=== PATIENT | female | born 1945 | race Caucasian/White ===

== ENCOUNTER 2016-11-02 17:16 | Inpatient (IN) ==
[2016-11-02] MEDS ORDERED: Ondansetron 4 MG/2 ML VIAL IVP ONE (17:30)
--- NOTE | 2016-11-02 17:31 | Emergency Department Note ---
Disposition Clinical Impression: GI bleed Qualifiers: GI bleed type/associated pathology: unspecified gastrointestinal hemorrhage type Qualified Code(s): K92.2 - Gastrointestinal hemorrhage, unspecified Disposition: Still a Patient Condition: Fair Referrals: Lucia Leone DO [Primary Care Provider] - Forms: ED Satisfaction Letter GI Bleed HPI - General Chief complaint: ED GI Bleed Stated complaint: GI Bleed Time Seen by Provider: 11/02/16 17:21 Source: patient, EMS Mode of arrival: EMS Limitations: no limitations Nursing Notes Reviewed: Yes Vital Signs Reviewed: Yes - History of Present Illness HPI Narrative: 71-year-old female transfer evaluation of dark tarry stools as well as a couple episodes of coffee-ground emesis. Patient has no history of GI bleed. 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 Patient was recently admitted at [facility] for altered mental status and was discharged earlier today. Going back to the nursing facility the patient was noted to have a couple episodes of dark stools as well as emesis of coffee-ground emesis. Patient denies history of GI bleed in the past. Denies any nausea or vomiting currently. No abdominal pain. No chest pressures breath. Patient denies history of excessive NSAID use or ulcers. Denies history of liver disease. Has had a endoscopy in the past but is not able to recall the results. Also had a colonoscopy in the past but is not able to call the results. Patient is on aspirin daily. No other anticoagulation noted. Pt Subjective Complaint: coffee ground emesis, melena Onset (ago): hour(s) Consistency: constant - Related Data Allergies Allergy/AdvReac Type Severity Reaction Status Date / Time acetaminophen Allergy See Verified 11/02/16 17:30 [From Darvocet-N 100] Comments atropine [From Urised] Allergy See Verified 11/02/16 17:32 Comments Benzoic Acid [From Urised] Allergy See Verified 11/02/16 17:32 Comments Benzoic Acid Allergy See Verified 11/02/16 17:30 Comments butalbital [From Fioricet] Allergy See Verified 11/02/16 17:30 Comments caffeine [From Fioricet] Allergy See Verified 11/02/16 17:30 Comments ciprofloxacin [From Cipro] Allergy See Verified 11/02/16 17:30 Comments Hyoscyamine Allergy See Verified 11/02/16 17:30 Comments methenamine Allergy See Verified 11/02/16 17:30 Comments methylene blue [From Urised] Allergy See Verified 11/02/16 17:32 Comments Penicillins Allergy See Verified 11/02/16 17:30 Comments propoxyphene Allergy See Verified 11/02/16 17:30 [From Darvocet-N 100] Comments salicylates [From Urised] Allergy See Verified 11/02/16 17:32 Comments All systems ED: reviewed and negative except as stated. Constitutional: Reports: as per HPI. Denies: fever Eyes: Reports: as per HPI ENT ED: Reports: as per HPI Cardiovascular: Reports: as per HPI. Denies: chest pain, palpitations Respiratory: Reports: as per HPI. Denies: cough, dyspnea Gastrointestinal: Reports: as per HPI, nausea, vomiting Genitourinary: Reports: as per HPI Musculoskeletal: Reports: as per HPI Integumentary: Reports: as per HPI Neurological: Reports: as per HPI Psychiatric: Reports: as per HPI Past Medical History - Past Medical History Surgical history: Reports: cholecystectomy - Social History Smoking Status: Never smoker Physical Exam - General Limitations: no limitations General appearance: alert, in no apparent distress, obese, other (APPEARS PALE) - Head Head exam: atraumatic, normocephalic, normal inspection - Eye Eye exam: Present: normal appearance, PERRL, EOMI. Absent: scleral icterus - ENT ENT exam: normal exam, mucous membranes moist - Neck Neck exam: Present: normal inspection - Chest Chest inspection: Present: normal inspection, symmetric chest wall rise - Respiratory Respiratory exam: Present: other (Diffusely diminished breath sounds). Absent: respiratory distress - Cardiovascular Cardiovascular exam: Present: regular rate, normal rhythm - Abdominal Exam Abdominal exam: Present: soft, Non-Tender. Absent: distention, guarding, rebound - Rectal Exam Blueprint Engineer present during exam: Yes Rectal exam: Present: normal rectal tone, heme (+) stool - Extremities Exam Extremities exam: Present: normal inspection. Absent: pedal edema - Back Exam Back exam: Present: normal inspection - Neurological Exam Neurological exam: Present: alert, oriented X3 - Skin Skin exam: Present: warm, dry, intact, pallor Course Course Narrative: Patient seen and examined. Patient appears pale. Patient's here for likely GI bleed. Patient's vitals are stable. Patient was noted to have blood pressure in the 90s which responded to small fluid bolus. Patient will get basic lab work, EKG, troponin as well as type and screen labs. Coagulation panel. Disposition likely admission. - Reevaluation(s) Reevaluation #1: Patient is in no acute distress and no reason at this time. The patient will be signed out to the oncoming providers for further evaluation and management. Time: 18:41 Vital Signs Temperature 98.4 F 11/02/16 17:37 Pulse Rate 112 11/02/16 17:37 Respiratory Rate 16 11/02/16 17:37 Blood Pressure 112/80 11/02/16 17:37 O2 Sat by Pulse Oximetry 100 11/02/16 17:37 Temperature 98.4 F 11/02/16 17:37 Pulse Rate 105 11/02/16 17:50 Respiratory Rate 16 11/02/16 17:50 Blood Pressure 107/87 11/02/16 17:50 O2 Sat by Pulse Oximetry 100 11/02/16 17:50 Oxygen Delivery Oxygen Delivery Nasal Cannula GI Bleed - Lab Data Lab Results 11/02/16 Range/Units 17:20 Stool Occult Blood Positive A (Negative) - EKG Data EKG attestation: Yes I reviewed and interpreted this EKG. EKG shows normal: sinus rhythm Rate: tachycardia Rhythm: NSR Sharon/QRS: normal Interpretation: no acute changes, unchanged when compared to prior tracing (date ) (2008) SHailey - Jose Situation: Demographics, MOA Background: Presenting Complaint, Relevant PMH, Meds, & Allergies Assessment: Vital Signs, Course and respsone to treatment, Patient/Family Expectation, Pertinant Lab Results, Outstanding Labs Recommendation: Barrier(s) to disposition, Recommendation based on pending studies, treatments, or consults S.B.AJefferson Report Given to: Dr. Radha Garcia Repor Time: 19:00
--- NOTE | 2016-11-02 17:38 | Emergency Department Note ---
START Narrative - START START: I examined this patient and my medical decision-making was reviewed with the AIRCRAFT PAINTER APPRENTICE/PA/Advanced Practice Nurse/Resident Physician. I agree with the documented findings, disposition and treatment plan as described except to the extent set forth below. ED attending note: Patient seen with emergency medicine resident Dr. Villasenor. Please see a copy of his note for details of the H&P, evaluation, management and disposition of this patient. We independently had [id number] contact with the patient Briefly: ST 11-year-old female by EMS from local longterm facility for vomiting up coffee ground emesis and dark stools. Was admitted at an outside emergency department for altered mental status and kept all weekend. He was discharged just today back to the longterm facility. Apparently this GI bleeding is new for today but she has a history of GERD GI bleeding and Bermudez' s esophagus. Patient is obese awake and alert does not appear to be altered abnormal complexion without pallor. Labs and rectal exam for guaiac testing are pending. Abdominal pelvic CT pending admission anticipated patient stable
[2016-11-02 19:10] LABS: INR 1.4; Prothrombin Time 15.4 Seconds (9.4-12.1)
[2016-11-02] MEDS ORDERED: Pantoprazole 80 MG in 0.9 % Sodium Chloride 50 ML IVPB ONE ×2 (19:10→19:45)
[2016-11-02 20:01] LABS: Basophils % 0.2 %; Eosinophils % 0.2 %; Immature Platelets 4.9 % (1.1-6.1); Lymphocytes # 1.3 K/mcL (0.6-4.6); Lymphocytes % 12.9 %; Mean Corpuscular HGB Conc 30.6 g/dL (31.6-35.5); Mean Corpuscular Hemoglobin 27.5 pg (28.0-33.3); Monocytes % 9.7 %; Neutrophils # 7.4 K/mcL (1.6-8.9); Nucleated Red Blood Cells 0.5 /100 WBC (0); Platelet Count 265 K/mcL (140-400); Red Cell Distribution Width 16.5 % (11.5-14.5)
[2016-11-02 20:08] LABS: Hemoglobin 5.5 g/dL (11.5-15.4)
[2016-11-02] MEDS ORDERED: *HR* FentaNYL (PF) 100 MCG/2 ML VIAL IVP ONE (20:23)
[2016-11-02 20:32] LABS: Anisocytosis 1+ (Not Present); Basophilic Stippling 1+ (Not Present); Hypochromasia Present (Not Present); Platelet Estimate Normal (Normal); Polychromasia 1+ (Not Present); Rouleaux Present (Not Present)
[2016-11-02 20:33] LABS: Large Platelets Present (Not Present)
[2016-11-02 20:36] LABS: Calcium 8.4 mg/dL (8.6-10.8)
[2016-11-02 20:38] LABS: Potassium 5.6 mEq/L (3.5-4.5)
--- NOTE | 2016-11-02 20:46 | Emergency Department Note ---
Disposition Clinical Impression: GI bleed Qualifiers: GI bleed type/associated pathology: unspecified gastrointestinal hemorrhage type Qualified Code(s): K92.2 - Gastrointestinal hemorrhage, unspecified Disposition: Still a Patient Condition: Critical Time of Disposition: 21:46 GI Bleed HPI - General Chief complaint: ED GI Bleed Stated complaint: GI Bleed Time Seen by Provider: 11/02/16 17:21 Source: patient, EMS Mode of arrival: EMS Limitations: no limitations - History of Present Illness Pt Subjective Complaint: coffee ground emesis, melena - Related Data Home Medications Medication Instructions Recorded Confirmed Acetaminophen [Tylenol] 650 mg PO Q6HR PRN 11/02/16 11/02/16 Albuterol Neb [Proventil Neb] 2.5 mg IH QID 11/02/16 11/02/16 Albuterol Sulfate [Albuterol 1 puff IH Q4HR 11/02/16 11/02/16 Inhaler] Aspirin [Lo-Dose Aspirin EC] 81 mg PO DAILY 11/02/16 11/02/16 Benzocaine/Menthol Sunil [Cepacol 1 lozenge MM Q4H PRN 11/02/16 11/02/16 Sore Throat Lozenge] Bisacodyl [Woman's Laxative] 5 mg PO DAILY PRN 11/02/16 11/02/16 Calcium Carbonate/Vitamin D3 1 tab PO BID 11/02/16 11/02/16 [Oyster Shell Calcium-Vit D Tab] Citalopram [CeleXA] 10 mg PO Q48H 11/02/16 11/02/16 Cranberry 500 mg PO BID 11/02/16 11/02/16 Fluticasone/Salmeterol [Advair 1 puff IH BID 11/02/16 11/02/16 250-50 Diskus] Furosemide [Lasix] 20 mg PO DAILY 11/02/16 11/02/16 Gabapentin [Neurontin] 400 mg PO TID 11/02/16 11/02/16 Glimepiride [Amaryl] 4 mg PO DAILY 11/02/16 11/02/16 GuaiFENesin/Dextromethorphan 1 tab PO BID 11/02/16 11/02/16 [Mucinex Dm ER 600-30 mg Tablet] Hydrocortisone Butyrate 1 appl TP BID PRN 11/02/16 11/02/16 Ibuprofen [Motrin] 600 mg PO Q8HR PRN 11/02/16 11/02/16 Ibuprofen [Motrin] 600 mg PO Q8HR PRN 11/02/16 11/02/16 Insulin ASPART [Novolog Flexpen] 2 - 10 unit SQ TIDWM 11/02/16 11/02/16 Loratadine [Allergy Relief] 10 mg PO DAILY 11/02/16 11/02/16 Mag Hydrox/Al Hydrox/Simeth 15 ml PO Q6H PRN 11/02/16 11/02/16 [Maalox] Magnesium Oxide [Mag-Ox] 400 mg PO TID 11/02/16 11/02/16 Menthol [Biofreeze] 1 appl TP BID 11/02/16 11/02/16 Metoclopramide [Reglan] 10 mg PO TID 11/02/16 11/02/16 Metoprolol [Lopressor] 25 mg PO BID 11/02/16 11/02/16 Montelukast [Singulair] 10 mg PO DAILY 11/02/16 11/02/16 Multivitamin with Iron 1 tab PO DAILY 11/02/16 11/02/16 [Multivitamins with Iron] Nitroglycerin [Nitrostat] 0.4 mg SL AD PRN 11/02/16 11/02/16 Oxybutynin Chloride [Ditropan Xl] 10 mg PO DAILY 11/02/16 11/02/16 Oxycodone HCl/Acetaminophen 1 tab PO Q6H PRN 11/02/16 11/02/16 [Percocet 5-325 mg Tablet] Pioglitazone [Actos] 30 mg PO DAILY 11/02/16 11/02/16 SUMAtriptan Succinate [Imitrex] 100 mg PO AD PRN 11/02/16 11/02/16 Simvastatin [Zocor] 20 mg PO HS 11/02/16 11/02/16 Tiotropium [Spiriva] 18 mcg IH DAILY 11/02/16 11/02/16 Allergies Allergy/AdvReac Type Severity Reaction Status Date / Time acetaminophen Allergy See Verified 11/02/16 17:30 [From Darvocet-N 100] Comments atropine [From Urised] Allergy See Verified 11/02/16 17:32 Comments Benzoic Acid [From Urised] Allergy See Verified 11/02/16 17:32 Comments Benzoic Acid Allergy See Verified 11/02/16 17:30 Comments butalbital [From Fioricet] Allergy See Verified 11/02/16 17:30 Comments caffeine [From Fioricet] Allergy See Verified 11/02/16 17:30 Comments ciprofloxacin [From Cipro] Allergy See Verified 11/02/16 17:30 Comments Hyoscyamine Allergy See Verified 11/02/16 17:30 Comments methenamine Allergy See Verified 11/02/16 17:30 Comments methylene blue [From Urised] Allergy See Verified 11/02/16 17:32 Comments Penicillins Allergy See Verified 11/02/16 17:30 Comments propoxyphene Allergy See Verified 11/02/16 17:30 [From Darvocet-N 100] Comments salicylates [From Urised] Allergy See Verified 11/02/16 17:32 Comments Constitutional: Reports: as per HPI. Denies: fever Eyes: Reports: as per HPI ENT ED: Reports: as per HPI Cardiovascular: Reports: as per HPI. Denies: chest pain, palpitations Respiratory: Reports: as per HPI. Denies: cough, dyspnea Gastrointestinal: Reports: as per HPI, nausea, vomiting Genitourinary: Reports: as per HPI Musculoskeletal: Reports: as per HPI Integumentary: Reports: as per HPI Neurological: Reports: as per HPI Psychiatric: Reports: as per HPI Past Medical History - Past Medical History Medical history: Reports: arthritis, COPD, diabetes, GERD, hyperlipidemia, hypertension, migraine, renal disease, other Surgical history: Reports: cholecystectomy Psychiatric history: Reports: anxiety, depression - Social History Smoking Status: Never smoker Smokeless Tobacco Status: No Alcohol use: Reports: none Drug use: Reports: none Physical Exam - General Limitations: no limitations General appearance: alert, in no apparent distress, obese, other (APPEARS PALE) Course - Reevaluation(s) Reevaluation #1: Patient received in signout from Dr. Villasenor. She presents with 1 day of persistent black and maroon-colored stools and one episode of coffee-ground emesis. She is not anticoagulated, but was just discharged from an outside facility 2 days ago for congestive heart failure where she did receive DVT prophylaxis Lovenox. She complains of weakness and mild shortness of breath without chest pain. On my initial evaluation the patient is tachycardic to 120 and only has a 20-gauge in her finger for access. I placed a right IJ central line for better access. Hemoglobin was found to be 5.5. 2 units of blood are ordered. We are awaiting an ICU bed versus transfer if it will not become available shortly at this time. Time: 21:25 Reevaluation #2: Case discussed with hospitalist application engineer Dr. Cox. He is aware of the critical nature of patient's condition and her full CODE STATUS. Dr. Arguelles is application engineer for endoscopy and was also notified of patient. I agree with her that there is no need for emergent endoscopy at this time. Patient will need volume resuscitation and endoscopy likely in the morning. Dr. Arguelles is available if needed through the night. She would like me to add Carafate to that Protonix. This was ordered. Hospitalist was updated on plan. Time: 21:46 Vital Signs Temperature 98.4 F 11/02/16 17:37 Pulse Rate 112 11/02/16 17:37 Respiratory Rate 16 11/02/16 17:37 Blood Pressure 112/80 11/02/16 17:37 O2 Sat by Pulse Oximetry 100 11/02/16 17:37 Temperature 98.4 F 11/03/16 04:50 Pulse Rate 97 11/03/16 06:00 Respiratory Rate 28 11/03/16 06:00 Blood Pressure 124/59 11/03/16 06:00 O2 Sat by Pulse Oximetry 100 11/03/16 06:00 Oxygen Delivery Oxygen Delivery Nasal Cannula Procedures - Central Line Placement Right IJ Central Line Inserted*: Yes Central Line Insertion: emergent Procedural Pause: verify patient name and date of , timeout performed per policy, norma and assess the site, assemble equipment and verify supplies, perform hand hygiene Patient Placed on Monitor/Pulse Ox: Yes During the Procedure: clinician is wearing sterile gloves, cap, mask,& gown during insertion, sterile field and sterile technique are maintained, patient's face is covered with drape or mask and wearing a cap, everyone in room is wearing a mask Central Line Prep: Chlorhexidine scrub Prep the Procedure Site: apply chloraprep to the skin using a back and forth scrubbing motion, apply chloraprep for 30 seconds (upper body), 1-2 min ( femoral sites), allow prep to dry, drape the patient with a full body drape Local Anesthetic: lidocaine 1% Amount of anesthesia used (mL): 5 Ultrasound Used for Placement: Yes Central Line Lumen Inserted: triple Post Procedure: sutured in place, good blood return, all ports aspirated, flushed, capped, sterile dressing applied, guide wire removed and visualized, dressing is dated Post Procedure X-Ray: tip of catheter in good position Patient Tolerated Procedure: well, no complications Complications: none Name of Clinician Inserting Central Line: Radha Date: 11/02/16 Time: 20:50 GI Bleed - Lab Data Result diagrams: 11/03/16 05:00 11/03/16 05:00 Lab Results 11/02/16 11/02/16 11/02/16 Range/Units 17:20 18:49 18:49 WBC (4.3-11.1) K/mcL RBC (3.82-4.97) M/mcL Hgb (11.5-15.4) g/dL Hct (35.3-44.9) % MCV (83.0-100.0) fL MCH (28.0-33.3) pg MCHC (31.6-35.5) g/dL RDW (11.5-14.5) % Plt Count (140-400) K/mcL MPV (9.4-12.4) fL Immature Gran % (0-4) % Seg Neutrophils % % Lymphocytes % % Monocytes % % Eosinophils % % Basophils % % Neutrophils # (1.6-8.9) K/mcL Lymphocytes # (0.6-4.6) K/mcL Monocytes # (0.0-1.3) K/mcL Eosinophils # (0.0-0.6) K/mcL Basophils # (0.0-0.2) K/mcL Nucleated RBCs/100 WBC (0) /100 WBC Platelet Estimate (Normal) Large Platelets (Not Present) Immature Plt Fraction (1.1-6.1) % Polychromasia (Not Present) Hypochromasia (Not Present) Basophilic Stippling (Not Present) Anisocytosis (Not Present) Rouleaux (Not Present) PT 15.4 H (9.4-12.1) Seconds INR 1.4 APTT 25.0 L (26.0-36.0) Seconds Sodium (136-145) mEq/L Potassium (3.5-4.5) mEq/L Chloride (98-109) mEq/L Carbon Dioxide (19-29) mEq/L BUN (7-20) mg/dL Creatinine (0.57-1.11) mg/dL Est GFR ( Amer) (> 60) Est GFR (Non-Af Amer) (> 60) BUN/Creatinine Ratio (6-26) Glucose (70-99) mg/dL Calculated Osmolality (280-300) Lactic Acid 1.3 (0.5-2.2) mmol/L Calcium (8.6-10.8) mg/dL Total Bilirubin (0.2-1.2) mg/dL Direct Bilirubin (0.0-0.5) mg/dL Indirect Bilirubin (0.0-1.2) mg/dL AST (5-34) Units/L ALT (0-55) Units/L Alkaline Phosphatase (38-126) Units/L Troponin I (0-0.03) ng/mL Serum Total Protein (6.0-8.3) g/dL Albumin (3.5-5.0) g/dL Globulin (2.4-3.5) g/dL Albumin/Globulin Ratio (1.1-2.2) Stool Occult Blood Positive A (Negative) Specimen Rejected Blood Type Antibody Screen Antibody Identification Crossmatch 11/02/16 11/02/16 11/02/16 Range/Units 18:49 18:49 18:49 WBC (4.3-11.1) K/mcL RBC (3.82-4.97) M/mcL Hgb (11.5-15.4) g/dL Hct (35.3-44.9) % MCV (83.0-100.0) fL MCH (28.0-33.3) pg MCHC (31.6-35.5) g/dL RDW (11.5-14.5) % Plt Count (140-400) K/mcL MPV (9.4-12.4) fL Immature Gran % (0-4) % Seg Neutrophils % % Lymphocytes % % Monocytes % % Eosinophils % % Basophils % % Neutrophils # (1.6-8.9) K/mcL Lymphocytes # (0.6-4.6) K/mcL Monocytes # (0.0-1.3) K/mcL Eosinophils # (0.0-0.6) K/mcL Basophils # (0.0-0.2) K/mcL Nucleated RBCs/100 WBC (0) /100 WBC Platelet Estimate (Normal) Large Platelets (Not Present) Immature Plt Fraction (1.1-6.1) % Polychromasia (Not Present) Hypochromasia (Not Present) Basophilic Stippling (Not Present) Anisocytosis (Not Present) Rouleaux (Not Present) PT (9.4-12.1) Seconds INR APTT (26.0-36.0) Seconds Sodium (136-145) mEq/L Potassium (3.5-4.5) mEq/L Chloride (98-109) mEq/L Carbon Dioxide (19-29) mEq/L BUN (7-20) mg/dL Creatinine (0.57-1.11) mg/dL Est GFR ( Amer) (> 60) Est GFR (Non-Af Amer) (> 60) BUN/Creatinine Ratio (6-26) Glucose (70-99) mg/dL Calculated Osmolality (280-300) Lactic Acid (0.5-2.2) mmol/L Calcium (8.6-10.8) mg/dL Total Bilirubin 0.1 L (0.2-1.2) mg/dL Direct Bilirubin 0.1 (0.0-0.5) mg/dL Indirect Bilirubin 0.0 (0.0-1.2) mg/dL AST 15 (5-34) Units/L ALT 7 (0-55) Units/L Alkaline Phosphatase 32 L (38-126) Units/L Troponin I 0.01 (0-0.03) ng/mL Serum Total Protein 5.4 L (6.0-8.3) g/dL Albumin 2.3 L (3.5-5.0) g/dL Globulin 3.1 (2.4-3.5) g/dL Albumin/Globulin Ratio 0.7 L (1.1-2.2) Stool Occult Blood (Negative) Specimen Rejected Hemolyzed Blood Type Antibody Screen Antibody Identification Crossmatch 11/02/16 11/02/16 11/02/16 Range/Units 19:52 19:52 20:38 WBC 10.3 (4.3-11.1) K/mcL RBC 2.00 L (3.82-4.97) M/mcL Hgb 5.5 L* (11.5-15.4) g/dL Hct 18.0 L (35.3-44.9) % MCV 90.0 (83.0-100.0) fL MCH 27.5 L (28.0-33.3) pg MCHC 30.6 L (31.6-35.5) g/dL RDW 16.5 H (11.5-14.5) % Plt Count 265 (140-400) K/mcL MPV 11.0 (9.4-12.4) fL Immature Gran % 5.0 H (0-4) % Seg Neutrophils % 72.0 % Lymphocytes % 12.9 % Monocytes % 9.7 % Eosinophils % 0.2 % Basophils % 0.2 % Neutrophils # 7.4 (1.6-8.9) K/mcL Lymphocytes # 1.3 (0.6-4.6) K/mcL Monocytes # 1.0 (0.0-1.3) K/mcL Eosinophils # 0.0 (0.0-0.6) K/mcL Basophils # 0.0 (0.0-0.2) K/mcL Nucleated RBCs/100 WBC 0.5 H (0) /100 WBC Platelet Estimate Normal (Normal) Large Platelets Present A (Not Present) Immature Plt Fraction 4.9 (1.1-6.1) % Polychromasia 1+ A (Not Present) Hypochromasia Present A (Not Present) Basophilic Stippling 1+ A (Not Present) Anisocytosis 1+ A (Not Present) Rouleaux Present A (Not Present) PT (9.4-12.1) Seconds INR APTT (26.0-36.0) Seconds Sodium 140 (136-145) mEq/L Potassium 5.6 H (3.5-4.5) mEq/L Chloride 106 (98-109) mEq/L Carbon Dioxide 26 (19-29) mEq/L BUN 48 H (7-20) mg/dL Creatinine 1.18 H (0.57-1.11) mg/dL Est GFR ( Amer) 55 L (> 60) Est GFR (Non-Af Amer) 45 L (> 60) BUN/Creatinine Ratio 41 H (6-26) Glucose 323 H (70-99) mg/dL Calculated Osmolality 315 H (280-300) Lactic Acid (0.5-2.2) mmol/L Calcium 8.4 L (8.6-10.8) mg/dL Total Bilirubin (0.2-1.2) mg/dL Direct Bilirubin (0.0-0.5) mg/dL Indirect Bilirubin (0.0-1.2) mg/dL AST (5-34) Units/L ALT (0-55) Units/L Alkaline Phosphatase (38-126) Units/L Troponin I (0-0.03) ng/mL Serum Total Protein (6.0-8.3) g/dL Albumin (3.5-5.0) g/dL Globulin (2.4-3.5) g/dL Albumin/Globulin Ratio (1.1-2.2) Stool Occult Blood (Negative) Specimen Rejected Blood Type A POSITIVE Antibody Screen POSITIVE A Antibody Identification Warm Auto Antibody Crossmatch See Detail 11/02/16 11/02/16 Range/Units 22:06 22:06 WBC (4.3-11.1) K/mcL RBC (3.82-4.97) M/mcL Hgb 5.0 L* (11.5-15.4) g/dL Hct 16.3 L (35.3-44.9) % MCV (83.0-100.0) fL MCH (28.0-33.3) pg MCHC (31.6-35.5) g/dL RDW (11.5-14.5) % Plt Count (140-400) K/mcL MPV (9.4-12.4) fL Immature Gran % (0-4) % Seg Neutrophils % % Lymphocytes % % Monocytes % % Eosinophils % % Basophils % % Neutrophils # (1.6-8.9) K/mcL Lymphocytes # (0.6-4.6) K/mcL Monocytes # (0.0-1.3) K/mcL Eosinophils # (0.0-0.6) K/mcL Basophils # (0.0-0.2) K/mcL Nucleated RBCs/100 WBC (0) /100 WBC Platelet Estimate (Normal) Large Platelets (Not Present) Immature Plt Fraction (1.1-6.1) % Polychromasia (Not Present) Hypochromasia (Not Present) Basophilic Stippling (Not Present) Anisocytosis (Not Present) Rouleaux (Not Present) PT (9.4-12.1) Seconds INR APTT (26.0-36.0) Seconds Sodium (136-145) mEq/L Potassium 5.1 H (3.5-4.5) mEq/L Chloride (98-109) mEq/L Carbon Dioxide (19-29) mEq/L BUN (7-20) mg/dL Creatinine (0.57-1.11) mg/dL Est GFR ( Amer) (> 60) Est GFR (Non-Af Amer) (> 60) BUN/Creatinine Ratio (6-26) Glucose (70-99) mg/dL Calculated Osmolality (280-300) Lactic Acid (0.5-2.2) mmol/L Calcium (8.6-10.8) mg/dL Total Bilirubin (0.2-1.2) mg/dL Direct Bilirubin (0.0-0.5) mg/dL Indirect Bilirubin (0.0-1.2) mg/dL AST (5-34) Units/L ALT (0-55) Units/L Alkaline Phosphatase (38-126) Units/L Troponin I (0-0.03) ng/mL Serum Total Protein (6.0-8.3) g/dL Albumin (3.5-5.0) g/dL Globulin (2.4-3.5) g/dL Albumin/Globulin Ratio (1.1-2.2) Stool Occult Blood (Negative) Specimen Rejected Blood Type Antibody Screen Antibody Identification Crossmatch Critical Care Time Critical Care Time: Yes Total Critical Care Time: 45 Attestation: The high probability of a clinically significant, sudden or life threatening deterioration of the cardiovascular system(s) required my full and direct attention, intervention and personal management. The aggregate critical care time was 45 minutes. This time is in addition to time spent performing reported procedures but includes the following: x Data Review and interpretation x Patient assessment and monitoring of vital signs x Documentation x Medication orders and management Attestation Statement - Attestation Attestation: I, Preston Olvera, examined this patient and my medical decision-making was reviewed with the AGRICULTURAL RESEARCH TECHNOLOGIST/PA/Advanced Practice Nurse/Resident Physician. I agree with the documented findings, disposition and treatment plan as described except to the extent set forth below. Patient received in sign out upon the start of my shift pending labs and reevaluation. Patient had multiple episodes of hematochezia during the day and one episode in the emergency department. She has a critically low hemoglobin however her blood pressures remained stable. She denies chest pain or shortness of breath. Patient was given a liter of IV fluids. She has antibodies which need to be accounted for by the blood bank, making the obtaining blood for her difficult. Patient will be admitted to the ICU for further care and evaluation.
[2016-11-02] MEDS ORDERED: 0.9 % Sodium Chloride 500 ML IVC ONE (20:47)
[2016-11-02] MEDS ORDERED: 0.9 % Sodium Chloride 500 ML ONE (20:48)
[2016-11-02] MEDS ORDERED: 0.9 % Sodium Chloride 1,000 ML IVC ONE (20:58)
[2016-11-02 21:15] LABS: Albumin 2.3 g/dL (3.5-5.0); Albumin/Globulin Ratio 0.7 (1.1-2.2); Bilirubin,Direct 0.1 mg/dL (0.0-0.5); Bilirubin,Total 0.1 mg/dL (0.2-1.2); Globulin 3.1 g/dL (2.4-3.5); Total Protein 5.4 g/dL (6.0-8.3)
[2016-11-02] MEDS ORDERED: Sucralfate 1 GM TABLET PO STA (21:44)
[2016-11-02 22:15] LABS: Hematocrit 16.3 % (35.3-44.9)
[2016-11-02] MEDS ORDERED: Naloxone 0.4 MG/ML INJ IVP PRN (23:51)
[2016-11-02] MEDS ORDERED: *HR* Morphine 2 MG/ML SYRINGE IVP ONE (23:52)
--- NOTE | 2016-11-02 23:52 | Internal Med History&Physical ---
<Amena Gan - Last Filed: 11/03/16 01:51> Date of Encounter: 11/03/16 Time of Encounter: 23:30 Assessment and Plan (1) Acute blood loss anemia Current visit: Yes Status: Acute - Hgb 5.5 on initial presentation and dropped to 5.0 before patient received pRBC transfusion. - Likely secondary to significant upper GI bleed as evidenced by coffee ground emesis and melena. - Patient's blood is positive for warm autoantibody which can complicate pretransfusion and compatiblity test. Two units of most compatible pRBC were obtained from blood bank and informed consent was obtained from patient. Dr. Kwan had discussed this situation with pathologist in charge of blood bank. Given the benefit of transfusion is outweighed potential risk of transfusion reaction at this time, will proceed to give pRBC transfusion. - Currently getting 2 units of blood transfusion. - Benadryl IV prn allergic reaction. - Closely monitor with frequent H&H check. (2) GI bleed Current visit: Yes Status: Acute - With acute onset of coffee ground emesis and melena. - Most likely from bleeding peptic ulcer secondary to chronic NSAID use. - Other differentials include angiodysplasia, esophageal varices (doubt given CT A/P does not suggest liver cirrhosis) and Agatha-Steinberg tear (doubt given no reported vomiting prior to the coffee ground emesis). - Continue Protonix drip and carafate. - Will consult surgery for EGD as ED physician had discussed the case with Dr. Salinas. Appreciate surgery evaluation and recommendation. - NPO except medications for now. Qualifiers: GI bleed type/associated pathology: unspecified gastrointestinal hemorrhage type Qualified Code(s): K92.2 - Gastrointestinal hemorrhage, unspecified (3) Renal insufficiency Current visit: Yes Status: Acute - SCr 1.18 with eGFR 45. - Unknown baseline at this time. Can be secondary to decreased renal perfusion from acute blood loss anemia. - Avoid nephrotoxin. - Continue to monitor renal function and electrolytes. (4) Hyperkalemia Current visit: Yes Status: Acute - K 5.6 on initial presentation but decreased to 5.1 on recheck. - Continue to monitor. (5) Diabetes Current visit: Yes Status: Chronic - Insulin sliding scale with routine glucose monitoring. 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 Sahu is a 71 year old female chronic SNF resident with PMH of Bermudez's esophagus, HTN, hyperlipidemia, diabetes, chronic bilateral leg pain. Patient was sent from senior living for episodes of coffee ground emesis and melena since 11/02. Patient is not a good historian as patient cannot recall a lot of details. Per patient, she was recently hospitalized at [facility] for UTI and was on DVT prophylaxis during her stay. Patient was just discharged back to senior living on 11/02 and coffee ground emesis and melena shortly happened after. Patient reports some lightheadedness and fatigue but denies syncope, chest pain/ discomfort, shortness of breath, abdominal pain, hematuria or other sign of active bleeding. Patient reports having EGD done in August 2016 but not sure if it's in [place] or [facility]. Patient admits taking Motrin twice a day. Patient is not sure if she is taking aspirin and some of medications at senior living. Patient reports having blood transfusion in the past and no known transfusion reaction. Patient is full code. In ED, patient was noted to have Hgb 5.5 initially with one bowel movement which is stool occult blood positive. Patient was noted to be tachycardic but limited IV access so a right IJ central line was placed by ED resident and started on IV NS. Patient was started on IV Protonix and carafate was added after ED resident discussed with Dr. Salinas as they both agreed no need to have endoscopy at this time. Patient was admitted to ICU for further management with close monitoring. Past Med Surg Social Fam HX - Past Medical History Medical history: arthritis, COPD, diabetes, GERD, hyperlipidemia, hypertension, migraine, renal disease, other (Bermudez's esophagus) Psychiatric history: anxiety, depression - Past Surgical History Surgical History: cholecystectomy, hysterectomy - Social History Smoking Status: Never smoker Smokeless Tobacco Status: No Alcohol use: none Drug use: none - Family History Mother Adopted: No Living Status: Hx Family Cancer: Yes Father Living Status: Hx Family Cardiac Disorders: Yes Internal Medicine - H&P: Meds Acetaminophen [Tylenol] 650 mg PO Q6HR PRN 11/02/16 [History] Albuterol Neb [Proventil Neb] 2.5 mg IH QID 11/02/16 [History] Albuterol Sulfate [Albuterol Inhaler] 1 puff IH Q4HR 11/02/16 [History] Aspirin [Lo-Dose Aspirin EC] 81 mg PO DAILY 11/02/16 [History] Benzocaine/Menthol Sunil [Cepacol Sore Throat Lozenge] 1 lozenge MM Q4H PRN [History] Bisacodyl [Woman's Laxative] 5 mg PO DAILY PRN 11/02/16 [History] Calcium Carbonate/Vitamin D3 [Oyster Shell Calcium-Vit D Tab] 1 tab PO BID 11/02 [History] Citalopram [CeleXA] 10 mg PO Q48H 11/02/16 [History] Cranberry 500 mg PO BID 11/02/16 [History] Fluticasone/Salmeterol [Advair 250-50 Diskus] 1 puff IH BID 11/02/16 [History] Furosemide [Lasix] 20 mg PO DAILY 11/02/16 [History] Gabapentin [Neurontin] 400 mg PO TID 11/02/16 [History] Glimepiride [Amaryl] 4 mg PO DAILY 11/02/16 [History] GuaiFENesin/Dextromethorphan [Mucinex Dm ER 600-30 mg Tablet] 1 tab PO BID 11/02 [History] Hydrocortisone Butyrate 1 appl TP BID PRN 11/02/16 [History] Ibuprofen [Motrin] 600 mg PO Q8HR PRN 11/02/16 [History] Ibuprofen [Motrin] 600 mg PO Q8HR PRN 11/02/16 [History] Insulin ASPART [Novolog Flexpen] 2 - 10 unit SQ TIDWM 11/02/16 [History] Loratadine [Allergy Relief] 10 mg PO DAILY 11/02/16 [History] Mag Hydrox/Al Hydrox/Simeth [Maalox] 15 ml PO Q6H PRN 11/02/16 [History] Magnesium Oxide [Mag-Ox] 400 mg PO TID 11/02/16 [History] Menthol [Biofreeze] 1 appl TP BID 11/02/16 [History] Metoclopramide [Reglan] 10 mg PO TID 11/02/16 [History] Metoprolol [Lopressor] 25 mg PO BID 11/02/16 [History] Montelukast [Singulair] 10 mg PO DAILY 11/02/16 [History] Multivitamin with Iron [Multivitamins with Iron] 1 tab PO DAILY 11/02/16 [ History] Nitroglycerin [Nitrostat] 0.4 mg SL AD PRN 11/02/16 [History] Oxybutynin Chloride [Ditropan Xl] 10 mg PO DAILY 11/02/16 [History] Oxycodone HCl/Acetaminophen [Percocet 5-325 mg Tablet] 1 tab PO Q6H PRN [History] Pioglitazone [Actos] 30 mg PO DAILY 11/02/16 [History] SUMAtriptan Succinate [Imitrex] 100 mg PO AD PRN 11/02/16 [History] Simvastatin [Zocor] 20 mg PO HS 11/02/16 [History] Tiotropium [Spiriva] 18 mcg IH DAILY 11/02/16 [History] Allergies acetaminophen [From Darvocet-N 100] Allergy (Verified 11/02/16 17:30) See Comments atropine [From Urised] Allergy (Verified 11/02/16 17:32) See Comments Benzoic Acid [From Urised] Allergy (Verified 11/02/16 17:32) See Comments Benzoic Acid Allergy (Verified 11/02/16 17:30) See Comments butalbital [From Fioricet] Allergy (Verified 11/02/16 17:30) See Comments caffeine [From Fioricet] Allergy (Verified 11/02/16 17:30) See Comments ciprofloxacin [From Cipro] Allergy (Verified 11/02/16 17:30) See Comments Hyoscyamine Allergy (Verified 11/02/16 17:30) See Comments methenamine Allergy (Verified 11/02/16 17:30) See Comments methylene blue [From Urised] Allergy (Verified 11/02/16 17:32) See Comments NSAIDS (Non-Steroidal Anti-Inflamma Allergy (Verified 11/03/16 11:54) Itching Penicillins Allergy (Verified 11/02/16 17:30) See Comments propoxyphene [From Darvocet-N 100] Allergy (Verified 11/02/16 17:30) See Comments salicylates [From Urised] Allergy (Verified 11/02/16 17:32) See Comments All Systems PM: A 10-system review of systems was performed and is negative for pertinent findings except as documented above in the HPI. - Constitutional Constitutional: no anorexia, no chills, no fever(s), no weight gain, no weight loss - EENT Eyes: no change in vision Ears: no decreased hearing Nose, mouth and throat: no dysphagia, no odynophagia - Cardiovascular Cardiovascular ROS IM: edema, lightheadedness, no chest pain, no palpitations, no syncope - Respiratory Respiratory: cough (Chronic), no dyspnea, no hemoptysis, no excessive phlegm production - Gastrointestinal Gastrointestinal: as per HPI, coffee ground emesis, diarrhea, melena, nausea, no abdominal pain, no hematochezia - Genitourinary Genitourinary: dysuria (Chronic), no difficulty urinating, no hematuria - Musculoskeletal Musculoskeletal ROS IM: arthralgias (Chronic bilateral leg pain) - Integumentary Integumentary IM: no pruritus, no rash - Neurological Neurological ROS: no focal weakness, no numbness, no tingling - Constitutional Vitals: Temp Pulse Resp BP Pulse Ox 98.1 F 108 20 126/48 96 11/02/16 23:08 11/02/16 23:08 11/02/16 23:08 11/02/16 23:08 11/02/16 23:08 General appearance: Present: cooperative, A&O X 3, no acute distress - Head Head exam: Present: atraumatic, normocephalic - Eye Eye exam: Present: EOMI, PERRL, conjuntiva pink, sclera anicteric - Neck Neck exam general surgery: Present: supple, trachea midline. Absent: lymphadenopathy - Respiratory Respiratory exam: Present: decreased breath sounds. Absent: accessory muscle use, rales, rhonchi, wheezes - Cardiovascular Cardiovascular exam: Present: +S1, +S2, tachycardia. Absent: diastolic murmur, gallop, rubs, systolic murmur - GI/Abdominal GI/Abdominal exam: Present: normal bowel sounds, soft, tenderness (Epigastric area), no peritoneal signs. Absent: distended - Extremities Exam Extremities exam: Present: pedal edema (Mild bilateral lower extremity non- pitting edema), warm, radial pulses palpable and symetrical. Absent: calf tenderness, cyanotic - Neurological Exam Neurological exam: Present: CN II-XII intact, oriented X3, no focal deficits. Absent: pronater drift, facial droop, speech deficit - Skin Skin exam: Present: dry, intact, warm Internal Med - H&P Results - Labs CBC & Chem 7: 11/02/16 22:06 11/02/16 22:06 Labs: Short CBC 11/02/16 11/02/16 Range/Units 22:06 19:52 WBC 10.3 (4.3-11.1) K/mcL Hgb 5.0 L* 5.5 L* (11.5-15.4) g/dL Hct 16.3 L 18.0 L (35.3-44.9) % Plt Count 265 (140-400) K/mcL Neutrophils # 7.4 (1.6-8.9) K/mcL BMP 11/02/16 11/02/16 Range/Units 22:06 19:52 Sodium 140 (136-145) mEq/L Potassium 5.1 H 5.6 H (3.5-4.5) mEq/L Chloride 106 (98-109) mEq/L Carbon Dioxide 26 (19-29) mEq/L BUN 48 H (7-20) mg/dL Creatinine 1.18 H (0.57-1.11) mg/dL Glucose 323 H (70-99) mg/dL Calcium 8.4 L (8.6-10.8) mg/dL Cardiac Enzymes 11/02/16 Range/Units 18:49 Troponin I 0.01 (0-0.03) ng/mL Liver Function 11/02/16 Range/Units 18:49 Total Bilirubin 0.1 L (0.2-1.2) mg/dL Direct Bilirubin 0.1 (0.0-0.5) mg/dL AST 15 (5-34) Units/L ALT 7 (0-55) Units/L Alkaline Phosphatase 32 L (38-126) Units/L Albumin 2.3 L (3.5-5.0) g/dL - EKG Data -: EKG Interpreted by Myself EKG shows normal: sinus rhythm Rate: tachycardia - EKG Data Prior EKG available for review: yes When compared to previous EKG: there is no significant change - Impressions Impressions Abdomen/Pelvis CT 11/02/16 17:41 IMPRESSION: 1. No acute abdominal or pelvic abnormality on this unenhanced study. 2. Nonobstructing bilateral renal calculi. 3. Moderate to large hiatal hernia. 4. Colonic diverticulosis without acute diverticulitis. 5. Soft tissue stranding within the right lower quadrant subcutaneous soft tissues with overlying skin thickening. Recommend correlation with focal signs of cellulitis. There are a few foci of gas in this region which could be related to recent procedure or injection sites. Gas gangrene is felt to be much less likely. 6. Ill-defined subcentimeter nodular opacities in the right lower lobe likely infectious in etiology. Recommend a short-term follow-up in three months to ensure resolution. D/ / 11/02/2016 18:52:39 Lula Madrigal MD / suhail Interpreting Provider: Lula Madrigal MD Chest X-Ray 11/02/16 20:42 IMPRESSION: Interval placement of right internal jugular central venous catheter with the tip overlying the mid SVC. No pneumothorax. D/ / Lula Madrigal MD / Lula Madrigal MD Interpreting Provider: Lula Madrigal MD <Ashley Kwan R - Last Filed: 11/03/16 22:22> Date of Encounter: 11/02/16 Internal Medicine - H&P: HPI History of present illness: Ms. Sahu is a 71 year old female All Systems PM: A 10-system review of systems was performed and is negative for pertinent findings except as documented above in the HPI. - Constitutional Vitals: Temp Pulse Resp BP Pulse Ox 98.1 F 87 20 148/64 99 11/03/16 20:56 11/03/16 21:00 11/03/16 21:00 11/03/16 21:00 11/03/16 21:00 Internal Med - H&P Results - Labs CBC & Chem 7: 11/03/16 18:12 11/03/16 05:00 Labs: Short CBC 11/03/16 11/03/16 Range/Units 05:00 18:12 WBC 8.8 8.8 (4.3-11.1) K/mcL Hgb 7.3 L D 7.6 L (11.5-15.4) g/dL Hct 22.7 L 23.5 L (35.3-44.9) % Plt Count 176 158 (140-400) K/mcL Neutrophils # 6.6 6.4 (1.6-8.9) K/mcL BMP 11/03/16 05:00 Sodium 143 Potassium 5.0 H Chloride 109 Carbon Dioxide 28 BUN 49 H Creatinine 1.30 H Glucose 213 H Calcium 8.1 L Liver Function 11/03/16 Range/Units 05:00 Total Bilirubin 0.4 (0.2-1.2) mg/dL AST 12 (5-34) Units/L ALT 7 (0-55) Units/L Alkaline Phosphatase 30 L (38-126) Units/L Albumin 2.4 L (3.5-5.0) g/dL - Attending Attestation I performed history and physical examination of the patient and discussed management with the Resident. I reviewed the Residents note and agree with documented findings and plan of care. 71 Y/F, SNF resident with PMH of Bermudez's esophagus, HTN, hyperlipidemia, diabetes - she apparently was recently hospitalized at [facility] for UTI and was on DVT prophylaxis during her stay. She presents with coffee ground emesis and melena shortly after discharge to the senior living on 11/02/16. Her hemoglobin was 5.5 in the emergency department, with positive fecal occult blood. Pts medication list shows aspirin and ibuprofen. O/E: Patient looks pale. Epigastric tenderness present. Resting tremors of the upper extremities present. Reviewed the labs/imaging. Repeat Hgb: 5; HCT: 16.3. BUN is elevated. CT abdomen/pelvis shows large hiatal hernia, ill-defined subcentimeter nodular opacities in the right lower lobe likely infectious in etiology. A/P: - Acute upper GI bleed/blood loss anemia: Likely secondary to aspirin/ NSAID induced gastropathy/peptic ulcer disease versus esophagitis. Unlikely variceal bleed. Will start PPI infusion, Surgical consult for possible EGD. PRBC Transfusion to keep Hgb >8. 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 Discussed with the pathologist Dr Arriaga who indicates that warm autoantibodies mask other antibodies and at this time, due to severe anemia , would be reasonable to transfuse the pt. Pulmonary nodules: Radiologist recommends follow-up in 3 months to ensure resolution.
[2016-11-03] MEDS ORDERED: Acetaminophen 325 MG TABLET PO PRN (00:22)
[2016-11-03] MEDS: Pantoprazole 40 MG in 0.9 % Sodium Chloride Mini Bag 100 ML IVC SCH ×3 (00:39→12:49)
[2016-11-03] MEDS: *HR* HYDROmorphone (PF) 1 MG/ML SYRINGE IVP PRN ×5 (00:39→22:26)
[2016-11-03] MEDS ORDERED: *HR* Dextrose 50 % in Water (Syg) 50 ML SYRINGE IVP PRN (01:04)
[2016-11-03] MEDS ORDERED: D5% in Water 1,000 ML IVC PRN (01:04)
[2016-11-03] MEDS ORDERED: Dextrose Gel 15 GM PO PRN ×2 (01:04)
[2016-11-03] MEDS ORDERED: Ipratropium/Albuterol Neb 3 ML IH PRN (01:07)
[2016-11-03 05:15] LABS: Basophils % 0.5 %; Hematocrit 22.7 % (35.3-44.9); Immature Granulocytes % 5.2 % (0-4); Lymphocytes % 11.4 %; Mean Corpuscular HGB Conc 32.2 g/dL (31.6-35.5); Mean Corpuscular Hemoglobin 28.3 pg (28.0-33.3); Mean Platelet Volume 10.4 fL (9.4-12.4); Monocytes # 0.8 K/mcL (0.0-1.3); Monocytes % 8.5 %; Neutrophils # 6.6 K/mcL (1.6-8.9); Nucleated Red Blood Cells 0.8 /100 WBC (0); Platelet Count 176 K/mcL (140-400); Red Blood Count 2.58 M/mcL (3.82-4.97); Red Cell Distribution Width 15.2 % (11.5-14.5); Segmented Neutrophils % 74.4 %
[2016-11-03 05:20] LABS: INR 1.3; Prothrombin Time 14.2 Seconds (9.4-12.1)
[2016-11-03 05:22] LABS: Activated Partial Thrombo Time 21.8 Seconds (26.0-36.0)
[2016-11-03 05:23] LABS: Hemoglobin 7.3 g/dL (11.5-15.4)
[2016-11-03 05:34] LABS: Albumin 2.4 g/dL (3.5-5.0); Albumin/Globulin Ratio 0.9 (1.1-2.2); Bilirubin,Total 0.4 mg/dL (0.2-1.2); Calcium 8.1 mg/dL (8.6-10.8); Globulin 2.6 g/dL (2.4-3.5); Magnesium 1.5 mg/dL (1.6-2.6); Phosphorous 2.7 mg/dL (2.3-4.7)
[2016-11-03 06:47] LABS: Large Platelets Present (Not Present); Platelet Estimate Normal (Normal)
[2016-11-03] MEDS ORDERED: Sucralfate 1 GM TABLET PO SCH (07:30)
[2016-11-03] MEDS ORDERED: Magnesium Sulfate 2 GM in D5% in Water 100 ML IVPB ONE (07:52)
[2016-11-03] MEDS: *HR* Morphine 2 MG/ML SYRINGE IVP PRN ×2 (07:58→16:30)
[2016-11-03] MEDS: Insulin LISPRO 300 UNITS/3 ML VIAL SQ SCH ×3 (08:00→18:20)
--- NOTE | 2016-11-03 09:40 | Internal Med Progress Note ---
Date of Encounter: 11/03/16 Time of Encounter: 09:38 - Assessment and plan (1) GI bleed Current Visit: Yes Status: Acute Assessment and plan: Patient admitted with hematemesis and anemia; transfuse PRBC to keep hemoglobin around 8. Surgery consulted and patient underwent EGD today. Case discussed with surgeon, EGD shows significant esophageal stricture 20 cm from incisors status postdilatation, superficial nonbleeding esophageal ulcer, punctate gastritis with no active bleeding, nonbleeding gastric diverticulum and significant hiatal hernia. Continue twice-daily PPI and Carafate. We will try to obtain records from [facility] to determine patient's baseline hemoglobin. If there has not been a significant acute drop in hemoglobin, plan for outpatient colonoscopy and repeat EGD for redilatation of esophageal stricture. Plan for inpatient colonoscopy if there is noted to be an acute change in hemoglobin. Continue to monitor closely. Clear liquid diet for now. Qualifiers: GI bleed type/associated pathology: gastritis Gastritis type: chronic gastritis Qualified Code(s): K29.51 - Unspecified chronic gastritis with bleeding (2) Acute blood loss anemia Current Visit: Yes Status: Acute Assessment and plan: Patient noted to have hemoglobin 5.5 at admission, noted to be 7.3 this morning after 2 units PRBC transfusion. We will transfuse 1 more unit PRBC and recheck hemoglobin. Will try to obtain previous medical records to determine baseline hemoglobin. Surgery consulted and patient underwent EGD, findings as above. Continue to monitor hemoglobin closely. (3) COPD (chronic obstructive pulmonary disease) Current Visit: Yes Status: Chronic Assessment and plan: Not noted to be in acute exacerbation. Continue when necessary bronchodilators and supplemental oxygen as needed. Qualifiers: COPD type: unspecified COPD Qualified Code(s): J44.9 - Chronic obstructive pulmonary disease, unspecified (4) Anxiety Current Visit: Yes Status: Chronic (5) Depression Current Visit: Yes Status: Chronic Qualifiers: Depression Type: unspecified Qualified Code(s): F32.9 - Major depressive disorder, single episode, unspecified (6) Diabetes Current Visit: Yes Status: Chronic Assessment and plan: Accu-Chek blood glucose monitoring with sliding scale insulin as needed. Diabetic diet. 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 Serum potassium noted to be 5 today. Low potassium diet. (9) Renal insufficiency Current Visit: Yes Status: Chronic Assessment and plan: Patient could be having underlying chronic kidney disease area serum creatinine noted to be slightly worse today, likely related to volume depletion and blood loss anemia. Continue to monitor serum creatinine closely. Avoid nephrotoxic agents, dose medications according to current creatinine clearance. - Subjective Interval history: Reports leg pain in both her legs; no abdominal pain; reported hematemesis/ coffee-ground emesis at the residential yesterday and patient does not remember how many times. No fever/chills; mostly bedbound due to previous stroke ; - Constitutional Vitals: Temp Pulse Resp BP Pulse Ox 99.2 F 97 28 124/59 100 11/03/16 07:59 11/03/16 06:00 11/03/16 06:00 11/03/16 06:00 11/03/16 06:00 General appearance: Present: A&O X 2 (poor memory and poor insight into medical conditions), answers questions appropriately - Respiratory Respiratory exam: Present: CTAB. Absent: accessory muscle use, rales, rhonchi, wheezes - Cardiovascular Cardiovascular exam: Present: RRR, +S1, +S2. Absent: diastolic murmur, gallop, rubs, systolic murmur - GI/Abdominal GI/Abdominal exam: Present: normal bowel sounds, soft (obese), no peritoneal signs. Absent: distended, tenderness - Extremities Exam Extremities exam: Present: warm, radial pulses palpable and symetrical. Absent : calf tenderness, cyanotic, pedal edema - Neurological Exam Neurological exam: Present: CN II-XII intact, oriented X3, no focal deficits, strengths equal and symetr throughout (decreased B/L LE). Absent: pronater drift, facial droop, speech deficit - Skin Skin exam: Present: dry, intact, pallor Internal Medicine: Result - Labs CBC & Chem 7: 11/03/16 05:00 11/03/16 05:00 Labs: Short CBC 11/03/16 Range/Units 05:00 WBC 8.8 (4.3-11.1) K/mcL Hgb 7.3 L D (11.5-15.4) g/dL Hct 22.7 L (35.3-44.9) % Plt Count 176 (140-400) K/mcL Neutrophils # 6.6 (1.6-8.9) K/mcL BMP 11/03/16 05:00 Sodium 143 Potassium 5.0 H Chloride 109 Carbon Dioxide 28 BUN 49 H Creatinine 1.30 H Glucose 213 H Calcium 8.1 L Liver Function 11/03/16 Range/Units 05:00 Total Bilirubin 0.4 (0.2-1.2) mg/dL AST 12 (5-34) Units/L ALT 7 (0-55) Units/L Alkaline Phosphatase 30 L (38-126) Units/L Albumin 2.4 L (3.5-5.0) g/dL - ABG Interpretation ABG results: PT/INR, D-dimer PT 14.2 Seconds (9.4-12.1) H 11/03/16 05:00 Consult Discharge Plan - Plan Referrals: Lucia Leone DO [Primary Care Provider] -
[2016-11-03] MEDS ORDERED: Furosemide 20 MG/2 ML VIAL IVP ONE ×2 (09:42→19:58)
[2016-11-03] MEDS ORDERED: *HR* Midazolam HCl 5 MG/5 ML VIAL IVP PRN (09:59)
[2016-11-03] MEDS ORDERED: Simethicone 40 MG/0.6 ML MLS IR ONE (09:59)
[2016-11-03] MEDS ORDERED: *HR* Promethazine 25 MG/ML VIAL IVP ONE (09:59)
[2016-11-03] MEDS ORDERED: *HR* FentaNYL (PF) 100 MCG/2 ML VIAL ONE ×2 (10:35→10:59)
--- NOTE | 2016-11-03 10:45 | Electrocardiograph Report ---
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
--- NOTE | 2016-11-03 11:39 | General Surgery Consult Note ---
Date of Encounter: 11/03/16 Time of Encounter: 10:45 Assessment and Plan (1) Melena Current Visit: Yes Status: Acute patient had +FOBT in ED EGD done for melena results documented elsewhere (2) Coffee ground emesis Current Visit: Yes Status: Acute egd for coffee ground emesis, on PPI and carafate (3) Anemia Current Visit: Yes Status: Acute awaiting labs from her recent admission to [facility] to see if she has had an acute blood loss event or if this is more of a chronic issue, if chronic recommend trend Hb while here as no obvious source of acute blood loss on EGD - gastritis, esophageal stricture, large hiatal hernia, gastric diverticulum. Checking Hpylori/Laila - pending. Continue PPI and carafate. Esophageal stricture dilated. ok start clears if labs from [facility] show acute blood loss will plan colonscopy as inpatient, if chronic blood loss will plan colonoscopy as outpatient with egd for redilation esophageal stricture Qualifiers: Anemia type: unspecified type Qualified Code(s): D64.9 - Anemia, unspecified (4) Esophageal stricture Current Visit: Yes Status: Acute dilated, was tight stricture with scope (`1cm diameter), dilated to 13.5 mm, circumferential bleeding after dilation. Area biopsied, appears benign intrinsic. Carafate liquid soft diet with ground meats once advanced past clears (5) Gastritis Current Visit: Yes Status: Chronic continue PPI carafate therapy Qualifiers: Gastritis type: superficial Chronicity: chronic Gastritis bleeding: without bleeding Qualified Code(s): K29.30 - Chronic superficial gastritis without bleeding (6) Hiatal hernia Current Visit: Yes Status: Chronic no surgical intervention at this time (7) Esophageal ulcer without bleeding Current Visit: Yes Status: Acute PPI/carafate therapy, was superficial, biopsy pending History of Present Illness Consult date: 11/03/16 Reason for consult: endoscopy History of present illness: Patient is 71 yo female who was recently discharged, yesterday, from [facility]. She was being treated for a uti. Upon return to her resident SNF she had hematemesis and melena. She states this is the first time this happened. She denies any abdominal pain or nausea. She states she has taken NSAIDS for 7 years, motrin twice daily. She has never previously had and EGD, her last colonoscopy per patient was 7 yrs ago and she is unsure of any pathology. Past Med Surg Social Fam HX - Past Medical History Source: patient, old records reviewed Medical history: arthritis, COPD, diabetes, GERD, hyperlipidemia, hypertension, migraine, renal disease, other Psychiatric history: anxiety, depression - Past Surgical History Surgical History: cholecystectomy - Social History Smoking Status: Never smoker Smokeless Tobacco Status: No Alcohol use: none Drug use: none - Family History Mother Adopted: No Living Status: Hx Family Cancer: Yes Father Living Status: Hx Family Cardiac Disorders: Yes Medications and Allergies Acetaminophen [Tylenol] 650 mg PO Q6HR PRN 11/02/16 [History] Albuterol Neb [Proventil Neb] 2.5 mg IH QID 11/02/16 [History] Albuterol Sulfate [Albuterol Inhaler] 1 puff IH Q4HR 11/02/16 [History] Aspirin [Lo-Dose Aspirin EC] 81 mg PO DAILY 11/02/16 [History] Benzocaine/Menthol Sunil [Cepacol Sore Throat Lozenge] 1 lozenge MM Q4H PRN [History] Bisacodyl [Woman's Laxative] 5 mg PO DAILY PRN 11/02/16 [History] Calcium Carbonate/Vitamin D3 [Oyster Shell Calcium-Vit D Tab] 1 tab PO BID 11/02 [History] Citalopram [CeleXA] 10 mg PO Q48H 11/02/16 [History] Cranberry 500 mg PO BID 11/02/16 [History] Fluticasone/Salmeterol [Advair 250-50 Diskus] 1 puff IH BID 11/02/16 [History] Furosemide [Lasix] 20 mg PO DAILY 11/02/16 [History] Gabapentin [Neurontin] 400 mg PO TID 11/02/16 [History] Glimepiride [Amaryl] 4 mg PO DAILY 11/02/16 [History] GuaiFENesin/Dextromethorphan [Mucinex Dm ER 600-30 mg Tablet] 1 tab PO BID 11/02 [History] Hydrocortisone Butyrate 1 appl TP BID PRN 11/02/16 [History] Ibuprofen [Motrin] 600 mg PO Q8HR PRN 11/02/16 [History] Ibuprofen [Motrin] 600 mg PO Q8HR PRN 11/02/16 [History] Insulin ASPART [Novolog Flexpen] 2 - 10 unit SQ TIDWM 11/02/16 [History] Loratadine [Allergy Relief] 10 mg PO DAILY 11/02/16 [History] Mag Hydrox/Al Hydrox/Simeth [Maalox] 15 ml PO Q6H PRN 11/02/16 [History] Magnesium Oxide [Mag-Ox] 400 mg PO TID 11/02/16 [History] Menthol [Biofreeze] 1 appl TP BID 11/02/16 [History] Metoclopramide [Reglan] 10 mg PO TID 11/02/16 [History] Metoprolol [Lopressor] 25 mg PO BID 11/02/16 [History] Montelukast [Singulair] 10 mg PO DAILY 11/02/16 [History] Multivitamin with Iron [Multivitamins with Iron] 1 tab PO DAILY 11/02/16 [ History] Nitroglycerin [Nitrostat] 0.4 mg SL AD PRN 11/02/16 [History] Oxybutynin Chloride [Ditropan Xl] 10 mg PO DAILY 11/02/16 [History] Oxycodone HCl/Acetaminophen [Percocet 5-325 mg Tablet] 1 tab PO Q6H PRN [History] Pioglitazone [Actos] 30 mg PO DAILY 11/02/16 [History] SUMAtriptan Succinate [Imitrex] 100 mg PO AD PRN 11/02/16 [History] Simvastatin [Zocor] 20 mg PO HS 11/02/16 [History] Tiotropium [Spiriva] 18 mcg IH DAILY 11/02/16 [History] Allergies acetaminophen [From Darvocet-N 100] Allergy (Verified 11/02/16 17:30) See Comments atropine [From Urised] Allergy (Verified 11/02/16 17:32) See Comments Benzoic Acid [From Urised] Allergy (Verified 11/02/16 17:32) See Comments Benzoic Acid Allergy (Verified 11/02/16 17:30) See Comments butalbital [From Fioricet] Allergy (Verified 11/02/16 17:30) See Comments caffeine [From Fioricet] Allergy (Verified 11/02/16 17:30) See Comments ciprofloxacin [From Cipro] Allergy (Verified 11/02/16 17:30) See Comments Hyoscyamine Allergy (Verified 11/02/16 17:30) See Comments methenamine Allergy (Verified 11/02/16 17:30) See Comments methylene blue [From Urised] Allergy (Verified 11/02/16 17:32) See Comments Penicillins Allergy (Verified 11/02/16 17:30) See Comments propoxyphene [From Darvocet-N 100] Allergy (Verified 11/02/16 17:30) See Comments salicylates [From Urised] Allergy (Verified 11/02/16 17:32) See Comments Review of Systems All systems PM: A 10-system review of systems was performed and is negative for pertinent findings except as documented above in the HPI. - Constitutional as per HPI General Surgery Exam Initial Vital Signs Temp Pulse Resp BP Pulse Ox 98.4 F 112 16 112/80 100 11/02/16 17:37 11/02/16 17:37 11/02/16 17:37 11/02/16 17:37 11/02/16 17:37 - General physical appearance well developed, well nourished, no distress, no pain, obese - Eyes PERRL, normal ocular movement - ENT dry mucosa, normocephalic - Neck trachea midline - Respiratory normal expansion, clear to auscultation - Cardiovascular Cardiovascular exam: Present: RRR, no murmurs/rubs/gallops - Abdomen Abdomen general surgery: Present: bowel sounds present, soft, non tender - Integumentary Integumentary general surgery: Present: warm and dry, no abnormal pigmentation - Neurologic Present: CN 2-12 grossly intact - Musculoskeletal Present: normal gait, normal posture - Psychiatric Psychiatric general surgery: Present: A&Ox3, speech is normal Exam Initial Vital Signs Temp Pulse Resp BP Pulse Ox 98.4 F 112 16 112/80 100 11/02/16 17:37 11/02/16 17:37 11/02/16 17:37 11/02/16 17:37 11/02/16 17:37 Results - Labs 11/03/16 05:00 11/03/16 05:00 Short CBC 11/03/16 11/02/16 11/02/16 Range/Units 05:00 22:06 19:52 WBC 8.8 10.3 (4.3-11.1) K/mcL Hgb 7.3 L D 5.0 L* 5.5 L* (11.5-15.4) g/dL Hct 22.7 L 16.3 L 18.0 L (35.3-44.9) % Plt Count 176 265 (140-400) K/mcL Neutrophils # 6.6 7.4 (1.6-8.9) K/mcL BMP 11/03/16 11/02/16 11/02/16 Range/Units 05:00 22:06 19:52 Sodium 143 140 (136-145) mEq/L Potassium 5.0 H 5.1 H 5.6 H (3.5-4.5) mEq/L Chloride 109 106 (98-109) mEq/L Carbon Dioxide 28 26 (19-29) mEq/L BUN 49 H 48 H (7-20) mg/dL Creatinine 1.30 H 1.18 H (0.57-1.11) mg/dL Glucose 213 H 323 H (70-99) mg/dL Calcium 8.1 L 8.4 L (8.6-10.8) mg/dL Cardiac Enzymes 11/02/16 Range/Units 18:49 Troponin I 0.01 (0-0.03) ng/mL Liver Function 11/03/16 11/02/16 Range/Units 05:00 18:49 Total Bilirubin 0.4 0.1 L (0.2-1.2) mg/dL Direct Bilirubin 0.1 (0.0-0.5) mg/dL AST 12 15 (5-34) Units/L ALT 7 7 (0-55) Units/L Alkaline Phosphatase 30 L 32 L (38-126) Units/L Albumin 2.4 L 2.3 L (3.5-5.0) g/dL Vital Signs Temp Pulse Resp BP Pulse Ox 11/03/16 07:59 99.2 F 11/03/16 07:00 97 11/03/16 06:00 97 28 124/59 100 11/03/16 05:00 99 28 133/76 100 11/03/16 04:50 98.4 F 98 20 140/56 11/03/16 04:00 96 22 142/49 100 11/03/16 03:58 99.7 F H 11/03/16 03:09 98.6 F 93 26 133/56 97 11/03/16 03:00 98.6 F 102 26 124/98 98 11/03/16 02:28 98.6 F 102 26 124/98 98 11/03/16 02:26 98.6 F 101 26 108/73 99 11/03/16 02:00 101 26 108/73 99 11/03/16 01:00 106 24 123/61 100 11/03/16 00:41 98.3 F 109 26 137/82 100 11/03/16 00:26 98.1 F 110 24 153/68 90 11/03/16 00:00 117 22 153/68 96 11/02/16 23:08 98.1 F 105 20 126/48 96 11/02/16 22:58 18 148/72 11/02/16 22:21 104 16 97/73 95 11/02/16 21:47 112 18 97/73 94 11/02/16 21:16 113 15 97/73 100 11/02/16 20:50 120 18 84/67 100 11/02/16 20:11 116 18 118/87 100 11/02/16 17:50 105 16 107/87 100 11/02/16 17:37 98.4 F 112 16 112/80 100 Intake and Output 11/02/16 11/03/16 11/03/16 23:59 07:59 15:59 Intake Total 50 / 50 845 / 845 Output Total 325 / 325 Balance 50 / 50 520 / 520 Intake: IV Fluids 50 / 50 100 / 100 Protonix 40 MG In 0.9 % 100 / 100 Sodium Chloride (Mini-Bag +) 100 ML @ 20 mls/hr IVC .Q5H FAITH Rx#: [id number] Protonix 80 MG In 0.9 % 50 / 50 Sodium Chloride 50 ML @ 600 mls/hr IVPB ONCE ONE Rx#:[id number] Blood Product 745 / 745 Rbcs Leuko Poor As-1 370 / 370 Unit [id number] Rbcs Leuko Poor As-3 375 / 375 Unit [id number] Output: Catheter 325 / 325 Other: Weight 113.426 kg 117.225 kg Blood Glucose* 290 Patient Weight 11/03/16 23:59 Weight 117.225 kg - Imaging CT scan - abdomen: report reviewed CT scan - pelvis: report reviewed Consult Discharge Plan - Plan Referrals: Lucia Leone DO [Primary Care Provider] -
[2016-11-03] MEDS ORDERED: 0.9 % Sodium Chloride 250 ML ONE ×2 (13:20→20:29)
[2016-11-03 18:32] LABS: Eosinophils % 0.1 %; Hematocrit 23.5 % (35.3-44.9); Hemoglobin 7.6 g/dL (11.5-15.4); Lymphocytes % 11.4 %; Mean Corpuscular HGB Conc 32.3 g/dL (31.6-35.5); Mean Corpuscular Hemoglobin 28.8 pg (28.0-33.3); Mean Platelet Volume 10.4 fL (9.4-12.4); Monocytes % 9.3 %; Platelet Count 158 K/mcL (140-400); Red Blood Count 2.64 M/mcL (3.82-4.97); Red Cell Distribution Width 15.8 % (11.5-14.5)
[2016-11-03 18:33] LABS: Basophils % 0.2 %; Monocytes # 0.8 K/mcL (0.0-1.3); Neutrophils # 6.4 K/mcL (1.6-8.9); Nucleated Red Blood Cells 0.9 /100 WBC (0)
[2016-11-03] MEDS: Pantoprazole 40 MG VIAL IVP SCH (19:05)
[2016-11-03 19:08] LABS: Basophilic Stippling 1+ (Not Present); Polychromasia 1+ (Not Present)
[2016-11-03 19:09] LABS: Hypochromasia Present (Not Present)
[2016-11-04] MEDS: Insulin LISPRO 300 UNITS/3 ML VIAL SQ SCH ×4 (00:12→18:30)
[2016-11-04] MEDS: *HR* HYDROmorphone (PF) 1 MG/ML SYRINGE IVP PRN ×2 (01:12→04:38)
[2016-11-04 04:49] LABS: Hematocrit 26.9 % (35.3-44.9); Hemoglobin 8.8 g/dL (11.5-15.4); Mean Corpuscular HGB Conc 32.7 g/dL (31.6-35.5); Mean Corpuscular Hemoglobin 29.8 pg (28.0-33.3); Mean Corpuscular Volume 91.2 fL (83.0-100.0); Mean Platelet Volume 9.8 fL (9.4-12.4); Nucleated Red Blood Cells 0.9 /100 WBC (0); Platelet Count 140 K/mcL (140-400); Red Blood Count 2.95 M/mcL (3.82-4.97); Red Cell Distribution Width 15.7 % (11.5-14.5)
[2016-11-04 04:53] LABS: BUN/Creatinine Ratio 36 (6-26); Calcium 8.3 mg/dL (8.6-10.8); Carbon Dioxide 35 mEq/L (19-29); Chloride 110 mEq/L (98-109); Glucose 145 mg/dL (70-99); Magnesium 1.6 mg/dL (1.6-2.6); Osmolality,Calculated 315 (280-300); Potassium 4.1 mEq/L (3.5-4.5); Sodium 148 mEq/L (136-145); eGFR For African Americans > 60 (> 60); eGFR For Non-African Americans > 60 (> 60)
[2016-11-04 04:58] LABS: Blood Urea Nitrogen 31 mg/dL (7-20)
[2016-11-04 05:17] LABS: Basophils # 0.1 K/mcL (0.0-0.2); Lymphocytes # 0.8 K/mcL (0.6-4.6); Monocytes # 0.4 K/mcL (0.0-1.3); Neutrophils # 7.1 K/mcL (1.6-8.9); Platelet Estimate Normal (Normal)
[2016-11-04] MEDS: Pantoprazole 40 MG VIAL IVP SCH ×2 (06:07→18:31)
--- NOTE | 2016-11-04 09:25 | Internal Med Progress Note ---
Date of Encounter: 11/04/16 Time of Encounter: 09:23 - Assessment and plan (1) GI bleed Current Visit: Yes Status: Acute Assessment and plan: Patient admitted with hematemesis and anemia; hemoglobin currently improved with PRBC transfusion. Surgery consult and follow-up appreciated. Underwent EGD that showed nonbleeding esophageal ulcer, gastritis and significant esophageal stricture status post dilation. Continue soft diet as tolerated. No bowel movements yet, no evidence of overt GI bleed. Continue to monitor hemoglobin closely. Plan for repeat EGD along with colonoscopy as an outpatient. Plan for discharge in a.m. if patient remains stable and hemoglobin remained stable. Continue twice-daily PPI and Carafate. reviewed records from [facility], shows chronic anemia around 8. Qualifiers: GI bleed type/associated pathology: gastritis Gastritis type: chronic gastritis Qualified Code(s): K29.51 - Unspecified chronic gastritis with bleeding (2) Acute blood loss anemia Current Visit: Yes Status: Acute Assessment and plan: Plan as above. Hemoglobin is noted to be 8.8 today, status post 4 units of PRBC transfusion during this admission. Continue to monitor hemoglobin. (3) COPD (chronic obstructive pulmonary disease) Current Visit: Yes Status: Chronic Assessment and plan: Not noted to be in acute exacerbation. Continue when necessary bronchodilators and supplemental oxygen as needed. Qualifiers: COPD type: unspecified COPD Qualified Code(s): J44.9 - Chronic obstructive pulmonary disease, unspecified (4) Anxiety Current Visit: Yes Status: Chronic (5) Depression Current Visit: Yes Status: Chronic Qualifiers: Depression Type: unspecified Qualified Code(s): F32.9 - Major depressive disorder, single episode, unspecified (6) Diabetes Current Visit: Yes Status: Chronic Assessment and plan: Accu-Chek blood glucose monitoring with sliding scale insulin as needed. Diabetic diet. 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 Serum creatinine currently normalized after fluid resuscitation and PRBC transfusion. - Subjective Interval history: Reports nausea and does not feel like eating breakfast; no bowel movements; does have some epigastric pain; no shortness of breath; - Constitutional Vitals: Temp Pulse Resp BP Pulse Ox 98.8 F 85 16 125/93 97 11/04/16 08:27 11/04/16 08:27 11/04/16 08:17 11/04/16 08:17 11/04/16 08:27 General appearance: Present: A&O X 2 (poor memory), answers questions appropriately - Respiratory Respiratory exam: Present: CTAB. Absent: accessory muscle use, rales, rhonchi, wheezes - Cardiovascular Cardiovascular exam: Present: RRR, +S1, +S2. Absent: diastolic murmur, gallop, rubs, systolic murmur - GI/Abdominal GI/Abdominal exam: Present: normal bowel sounds, soft (mild epigastric tenderness), no peritoneal signs. Absent: distended, tenderness - Neurological Exam Neurological exam: Present: strengths equal and symetr throughout (decreased diffusely B/L). Absent: pronater drift, facial droop, speech deficit Internal Medicine: Result - Labs CBC & Chem 7: 11/04/16 04:30 11/04/16 04:30 Labs: Short CBC 11/03/16 11/04/16 Range/Units 18:12 04:30 WBC 8.8 8.4 (4.3-11.1) K/mcL Hgb 7.6 L 8.8 L (11.5-15.4) g/dL Hct 23.5 L 26.9 L (35.3-44.9) % Plt Count 158 140 (140-400) K/mcL Neutrophils # 6.4 7.1 (1.6-8.9) K/mcL BMP 11/04/16 04:30 Sodium 148 H Potassium 4.1 Chloride 110 H Carbon Dioxide 35 H BUN 31 H D Creatinine 0.87 Glucose 145 H Calcium 8.3 L - ABG Interpretation ABG results: PT/INR, D-dimer PT 14.2 Seconds (9.4-12.1) H 11/03/16 05:00 Consult Discharge Plan - Plan Referrals: Lucia Leone DO [Primary Care Provider] -
[2016-11-04] MEDS ORDERED: Ondansetron 4 MG/2 ML VIAL IVP PRN (09:28)
--- NOTE | 2016-11-04 10:04 | General Surgery Progress Note ---
Date of Encounter: 11/04/16 Time of Encounter: 09:45 - Assessment and Plan (1) Acute blood loss anemia Current Visit: Yes Status: Acute Total of 4 units of PRBC Hgb- 5>8.8 No ongoing melena noted- patient denies bowel movement Records reviewed from [facility] and anemia has been chronic- will plan on outpatient colonoscopy with repeat EGD in the upcoming weeks. (2) Esophageal stricture Current Visit: Yes Status: Acute s/p dilatation Will plan on outpatient follow-up EGD in the upcoming weeks (3) Gastritis Current Visit: Yes Status: Chronic H. Pylori testing pending Continue PPI and carafate Advance to soft diet with ground meats- maintain this diet upon discharge due to stricture Qualifiers: Gastritis type: superficial Chronicity: chronic Gastritis bleeding: without bleeding Qualified Code(s): K29.30 - Chronic superficial gastritis without bleeding (4) Hiatal hernia Current Visit: Yes Status: Chronic No surgical intervention at this time (5) Esophageal ulcer without bleeding Current Visit: Yes Status: Acute Continue PPI therapy and carafate Subjective Patient reports: no new complaints, feels better, tolerating liquids well, flatus, no bowel movement, nausea, afebrile Objective Vital Signs - Last 8 Hours Temp Pulse Resp BP Pulse Ox 11/04/16 08:27 98.8 F 85 97 11/04/16 08:17 75 16 125/93 91 11/04/16 06:00 81 20 123/54 99 11/04/16 05:07 98.8 F 11/04/16 04:00 78 16 112/60 95 11/04/16 03:00 75 12 128/94 93 Intake and Output 11/03/16 11/04/16 11/04/16 23:59 07:59 15:59 Intake Total 700 / 700 0 / 0 120 / 120 Output Total 1150 / 1150 1150 / 1150 150 / 150 Balance -450 / -450 -1150 / -1150 -30 / -30 Intake: Oral 0 / 0 120 / 120 Blood Product 700 / 700 Rbcs Leuko Poor As-1 350 / 350 Unit [id number] Rbcs Leuko Poor As-1 350 / 350 Unit [id number] Output: Catheter 1150 / 1150 1150 / 1150 150 / 150 Other: Weight 116.5 kg Blood Glucose* 175 Patient Weight 11/04/16 23:59 Weight 116.5 kg - General physical appearance no distress, chronically ill, obese - Eyes normal ocular movement, pale - ENT normal mucosa, atraumatic, normocephalic - Neck Neck exam: trachea midline - Respiratory normal respiratory effort - Cardiovascular Cardiovascular exam: Present: RRR - Abdomen Abdomen: Present: bowel sounds present, soft, non tender - Neurologic CN 2-12 grossly intact - Musculoskeletal other (tremors noted, deconditioning) - Psychiatric oriented to person, oriented to place, speech is normal, memory intact - Labs 11/04/16 04:30 11/04/16 04:30 Diabetes panel 11/04/16 Range/Units 04:30 Sodium 148 H (136-145) mEq/L Potassium 4.1 (3.5-4.5) mEq/L Chloride 110 H (98-109) mEq/L Carbon Dioxide 35 H (19-29) mEq/L BUN 31 H D (7-20) mg/dL Creatinine 0.87 (0.57-1.11) mg/dL Glucose 145 H (70-99) mg/dL Calcium 8.3 L (8.6-10.8) mg/dL Calcium panel 11/04/16 Range/Units 04:30 Calcium 8.3 L (8.6-10.8) mg/dL Pituitary panel 11/04/16 Range/Units 04:30 Sodium 148 H (136-145) mEq/L Potassium 4.1 (3.5-4.5) mEq/L Chloride 110 H (98-109) mEq/L Carbon Dioxide 35 H (19-29) mEq/L BUN 31 H D (7-20) mg/dL Creatinine 0.87 (0.57-1.11) mg/dL Glucose 145 H (70-99) mg/dL Calcium 8.3 L (8.6-10.8) mg/dL Adrenal panel 11/04/16 Range/Units 04:30 Sodium 148 H (136-145) mEq/L Potassium 4.1 (3.5-4.5) mEq/L Chloride 110 H (98-109) mEq/L Carbon Dioxide 35 H (19-29) mEq/L BUN 31 H D (7-20) mg/dL Creatinine 0.87 (0.57-1.11) mg/dL Glucose 145 H (70-99) mg/dL Calcium 8.3 L (8.6-10.8) mg/dL Consult Discharge Plan - Plan Referrals: Lucia Leone DO [Primary Care Provider] - - Attending Attestation I examined this patient and my medical decision-making was reviewed with the NURSING FACULTY/PA/Advanced Practice Nurse/Resident Physician. I agree with the documented findings, disposition and treatment plan as described except to the extent set forth below.
[2016-11-04] MEDS: *HR* OxyCODONE/APAP 5/325 TABLET PO PRN ×2 (15:20→21:49)
[2016-11-04] MEDS: *HR* Morphine 2 MG/ML SYRINGE IVP PRN (20:04)
[2016-11-05] MEDS: Insulin LISPRO 300 UNITS/3 ML VIAL SQ SCH ×3 (00:16→14:33)
[2016-11-05] MEDS: *HR* Morphine 2 MG/ML SYRINGE IVP PRN (06:16)
[2016-11-05] MEDS: Pantoprazole 40 MG VIAL IVP SCH (06:17)
[2016-11-05 06:35] LABS: Hematocrit 27.6 % (35.3-44.9); Hemoglobin 8.6 g/dL (11.5-15.4); Mean Corpuscular HGB Conc 31.2 g/dL (31.6-35.5); Mean Corpuscular Hemoglobin 29.3 pg (28.0-33.3); Mean Corpuscular Volume 93.9 fL (83.0-100.0); Mean Platelet Volume 10.5 fL (9.4-12.4); Nucleated Red Blood Cells 0.6 /100 WBC (0); Platelet Count 154 K/mcL (140-400); Red Blood Count 2.94 M/mcL (3.82-4.97); Red Cell Distribution Width 15.9 % (11.5-14.5)
[2016-11-05 07:12] LABS: Basophils # 0.1 K/mcL (0.0-0.2); Lymphocytes # 0.9 K/mcL (0.6-4.6); Monocytes # 0.5 K/mcL (0.0-1.3); Platelet Estimate Normal (Normal)
[2016-11-05 10:23] VITALS: BP 154/63
--- NOTE | 2016-11-05 11:47 | Discharge Summary ---
Date of Encounter: 11/05/16 Time of Encounter: 11:42 - Discharge Diagnosis (1) GI bleed Priority: Primary Status: Acute Qualifiers: GI bleed type/associated pathology: gastritis Gastritis type: chronic gastritis Qualified Code(s): K29.51 - Unspecified chronic gastritis with bleeding (2) Acute blood loss anemia Priority: Primary Status: Acute (3) COPD (chronic obstructive pulmonary disease) Priority: Secondary Status: Chronic Qualifiers: COPD type: unspecified COPD Qualified Code(s): J44.9 - Chronic obstructive pulmonary disease, unspecified (4) Anxiety Priority: Secondary Status: Chronic (5) Depression Priority: Secondary Status: Chronic Qualifiers: Depression Type: unspecified Qualified Code(s): F32.9 - Major depressive disorder, single episode, unspecified (6) Diabetes Priority: Secondary Status: Chronic Qualifiers: Diabetes mellitus type: type 2 Diabetes mellitus complication status: with kidney complications Diabetes mellitus complication detail: with chronic kidney disease Diabetes mellitus jail insulin use: with terminal supervisor use Chronic kidney disease stage: stage 3 (moderate) Qualified Code(s): E11.22 - Type 2 diabetes mellitus with diabetic chronic kidney disease; N18.3 - Chronic kidney disease, stage 3 (moderate); Z79.4 - prison (current) use of insulin (7) Hypertension Priority: Secondary Status: Chronic Qualifiers: Hypertension type: essential hypertension Qualified Code(s): I10 - Essential (primary) hypertension (8) Hyperkalemia Priority: Primary Status: Resolved (9) Renal insufficiency Priority: Primary Status: Resolved (10) Esophageal stricture Priority: Primary Status: Chronic (11) Gastritis Priority: Primary Status: Chronic Qualifiers: Gastritis type: superficial Chronicity: chronic Gastritis bleeding: without bleeding Qualified Code(s): K29.30 - Chronic superficial gastritis without bleeding (12) Hiatal hernia Priority: Secondary Status: Chronic - Discharge Medications Prescriptions: Omeprazole [PriLOSEC] 40 mg PO BID #60 cap Sucralfate [Carafate] 1 g PO QIDAC 30 Days Home Medications: Acetaminophen [Tylenol] 650 mg PO Q6HR PRN 11/02/16 [History] Albuterol Neb [Proventil Neb] 2.5 mg IH QID 11/02/16 [History] Albuterol Sulfate [Albuterol Inhaler] 1 puff IH Q4HR 11/02/16 [History] Aspirin [Lo-Dose Aspirin EC] 81 mg PO DAILY 11/02/16 [History] Benzocaine/Menthol Sunli [Cepacol Sore Throat Lozenge] 1 lozenge MM Q4H PRN [History] Bisacodyl [Woman's Laxative] 5 mg PO DAILY PRN 11/02/16 [History] Calcium Carbonate/Vitamin D3 [Oyster Shell Calcium-Vit D Tab] 1 tab PO BID 11/02 [History] Citalopram [CeleXA] 10 mg PO Q48H 11/02/16 [History] Cranberry 500 mg PO BID 11/02/16 [History] Fluticasone/Salmeterol [Advair 250-50 Diskus] 1 puff IH BID 11/02/16 [History] Furosemide [Lasix] 20 mg PO DAILY 11/02/16 [History] Gabapentin [Neurontin] 400 mg PO TID 11/02/16 [History] Glimepiride [Amaryl] 4 mg PO DAILY 11/02/16 [History] GuaiFENesin/Dextromethorphan [Mucinex Dm ER 600-30 mg Tablet] 1 tab PO BID 11/02 [History] Hydrocortisone Butyrate 1 appl TP BID PRN 11/02/16 [History] Insulin ASPART [Novolog Flexpen] 2 - 10 unit SQ TIDWM 11/02/16 [History] Loratadine [Allergy Relief] 10 mg PO DAILY 11/02/16 [History] Mag Hydrox/Al Hydrox/Simeth [Maalox] 15 ml PO Q6H PRN 11/02/16 [History] Magnesium Oxide [Mag-Ox] 400 mg PO TID 11/02/16 [History] Menthol [Biofreeze] 1 appl TP BID 11/02/16 [History] Metoclopramide [Reglan] 10 mg PO TID 11/02/16 [History] Metoprolol [Lopressor] 25 mg PO BID 11/02/16 [History] Montelukast [Singulair] 10 mg PO DAILY 11/02/16 [History] Multivitamin with Iron [Multivitamins with Iron] 1 tab PO DAILY 11/02/16 [ History] Nitroglycerin [Nitrostat] 0.4 mg SL AD PRN 11/02/16 [History] Oxybutynin Chloride [Ditropan Xl] 10 mg PO DAILY 11/02/16 [History] Oxycodone HCl/Acetaminophen [Percocet 5-325 mg Tablet] 1 tab PO Q6H PRN [History] Pioglitazone [Actos] 30 mg PO DAILY 11/02/16 [History] SUMAtriptan Succinate [Imitrex] 100 mg PO AD PRN 11/02/16 [History] Simvastatin [Zocor] 20 mg PO HS 11/02/16 [History] Tiotropium [Spiriva] 18 mcg IH DAILY 11/02/16 [History] Omeprazole [PriLOSEC] 40 mg PO BID #60 cap 11/05/16 [Rx] Sucralfate [Carafate] 1 g PO QIDAC 30 Days 11/05/16 [Rx] Allergies/Adverse Reactions: Allergies acetaminophen [From Darvocet-N 100] Allergy (Verified 11/02/16 17:30) See Comments atropine [From Urised] Allergy (Verified 11/02/16 17:32) See Comments Benzoic Acid [From Urised] Allergy (Verified 11/02/16 17:32) See Comments Benzoic Acid Allergy (Verified 11/02/16 17:30) See Comments butalbital [From Fioricet] Allergy (Verified 11/02/16 17:30) See Comments caffeine [From Fioricet] Allergy (Verified 11/02/16 17:30) See Comments ciprofloxacin [From Cipro] Allergy (Verified 11/02/16 17:30) See Comments Hyoscyamine Allergy (Verified 11/02/16 17:30) See Comments methenamine Allergy (Verified 11/02/16 17:30) See Comments methylene blue [From Urised] Allergy (Verified 11/02/16 17:32) See Comments NSAIDS (Non-Steroidal Anti-Inflamma Allergy (Verified 11/03/16 11:54) Itching Penicillins Allergy (Verified 11/02/16 17:30) See Comments propoxyphene [From Darvocet-N 100] Allergy (Verified 11/02/16 17:30) See Comments salicylates [From Urised] Allergy (Verified 11/02/16 17:32) See Comments Date of admission: 11/02/16 22:09 Primary care physician: Lucia Leone DO Consults: 11/03/16 02:01 Consult to Surgery [CONS] Routine Consulting Provider: [facility] Reason for Consult: Acute onset coffee ground emesis and melena. Hgb 5.5 on initial presentation. Appreciate EGD for further evaluation and managment. ED physician had discussed the case with Dr. Salinas per ED note. Call Completed: Yes 11/05/16 10:16 Consult to Prestidigitator [CONS] Routine Reason for SW Consult: discharge planning; jail resident of [facility] Discharging clinician: Nicolette Jimenez Anticipated date of discharge: 11/05/16 - Patient Status Disposition: Transfer SNF Condition: Fair Functional capacity at discharge: bed bound Overall status at discharge: patient is progressing back to baseline - Discharge Instructions Instructions: Anemia (GEN) Follow Up With: Rosario Salinas MD [Partnered Physician] - 11/26/16 9:55 am Additional Instructions: F/up with in 2-3 weeks - Diet and Activity Activity: as per physical therapy, wear oxygen at all times Diet: diabetic diet, low fat, low cholesterol, low salt diet, other (soft diet with ground meats) Hospital course: Ms. Sahu is a 71 year old female long-term resident who was admitted with coffee-ground emesis and noted to have significant acute on chronic anemia. Patient received PRBC transfusion and was initially admitted to ICU for the possibility of significant upper GI bleed. Surgery was consulted and patient underwent EGD that revealed significant hiatal hernia, chronic gastritis with no stigmata of acute bleeding, superficial nonbleeding esophageal ulcer, significant esophageal stricture status post dilation.patient's hemoglobin was monitored after the procedure and noted to have no significant drop in hemoglobin and no overt bleeding like hematemesis/melena/hematochezia. Patient is recommended repeat EGD for repeat dilation of esophageal stricture along with colonoscopy in the coming weeks as an outpatient. She is otherwise medically stable for discharge. - Time Spent with Patient Total time spent providing and/or coordinating discharge services: Greater than 30 minutes (50 min) - Constitutional Vitals: Temp Pulse Resp BP Pulse Ox 98.5 F 85 12 154/63 98 11/05/16 10:22 11/05/16 10:11/05/16 10:11/05/16 10:11/05/16 10:22 General appearance: Present: A&O X 2 (poor memory), answers questions appropriately - Respiratory Respiratory exam: Present: CTAB. Absent: accessory muscle use, rales, rhonchi, wheezes - Cardiovascular Cardiovascular exam: Present: RRR, +S1, +S2. Absent: diastolic murmur, gallop, rubs, systolic murmur
--- NOTE | 2016-11-05 11:49 | Physician Discharge Referral ---
ExtendedCare Referral Info Transfer To: [facility] Provider in Charge: Nicolette Jimenez Provider in Charge after Transfer: PCP Institutional Level of Care: Skilled - Diagnosis (1) GI bleed Priority: Primary Status: Acute (2) Acute blood loss anemia Priority: Primary Status: Acute (3) COPD (chronic obstructive pulmonary disease) Priority: Secondary Status: Chronic (4) Anxiety Priority: Secondary Status: Chronic (5) Depression Priority: Secondary Status: Chronic (6) Diabetes Priority: Secondary Status: Chronic (7) Hypertension Priority: Secondary Status: Chronic (8) Hyperkalemia Status: Resolved (9) Renal insufficiency Priority: Primary Status: Resolved (10) Esophageal stricture Priority: Primary Status: Chronic (11) Gastritis Priority: Primary Status: Chronic (12) Hiatal hernia Priority: Primary Status: Chronic Expected Duration of Placement: 4 weeks Prognosis: Fair Aware of Diagnosis: Patient - Transfer Medications Prescriptions: Omeprazole [PriLOSEC] 40 mg PO BID #60 cap Sucralfate [Carafate] 1 g PO QIDAC 30 Days Home Medications: Acetaminophen [Tylenol] 650 mg PO Q6HR PRN 11/02/16 [History] Albuterol Neb [Proventil Neb] 2.5 mg IH QID 11/02/16 [History] Albuterol Sulfate [Albuterol Inhaler] 1 puff IH Q4HR 11/02/16 [History] Aspirin [Lo-Dose Aspirin EC] 81 mg PO DAILY 11/02/16 [History] Benzocaine/Menthol Sunil [Cepacol Sore Throat Lozenge] 1 lozenge MM Q4H PRN [History] Bisacodyl [Woman's Laxative] 5 mg PO DAILY PRN 11/02/16 [History] Calcium Carbonate/Vitamin D3 [Oyster Shell Calcium-Vit D Tab] 1 tab PO BID 11/02 [History] Citalopram [CeleXA] 10 mg PO Q48H 11/02/16 [History] Cranberry 500 mg PO BID 11/02/16 [History] Fluticasone/Salmeterol [Advair 250-50 Diskus] 1 puff IH BID 11/02/16 [History] Furosemide [Lasix] 20 mg PO DAILY 11/02/16 [History] Gabapentin [Neurontin] 400 mg PO TID 11/02/16 [History] Glimepiride [Amaryl] 4 mg PO DAILY 11/02/16 [History] GuaiFENesin/Dextromethorphan [Mucinex Dm ER 600-30 mg Tablet] 1 tab PO BID 11/02 [History] Hydrocortisone Butyrate 1 appl TP BID PRN 11/02/16 [History] Insulin ASPART [Novolog Flexpen] 2 - 10 unit SQ TIDWM 11/02/16 [History] Loratadine [Allergy Relief] 10 mg PO DAILY 11/02/16 [History] Mag Hydrox/Al Hydrox/Simeth [Maalox] 15 ml PO Q6H PRN 11/02/16 [History] Magnesium Oxide [Mag-Ox] 400 mg PO TID 11/02/16 [History] Menthol [Biofreeze] 1 appl TP BID 11/02/16 [History] Metoclopramide [Reglan] 10 mg PO TID 11/02/16 [History] Metoprolol [Lopressor] 25 mg PO BID 11/02/16 [History] Montelukast [Singulair] 10 mg PO DAILY 11/02/16 [History] Multivitamin with Iron [Multivitamins with Iron] 1 tab PO DAILY 11/02/16 [ History] Nitroglycerin [Nitrostat] 0.4 mg SL AD PRN 11/02/16 [History] Oxybutynin Chloride [Ditropan Xl] 10 mg PO DAILY 11/02/16 [History] Oxycodone HCl/Acetaminophen [Percocet 5-325 mg Tablet] 1 tab PO Q6H PRN [History] Pioglitazone [Actos] 30 mg PO DAILY 11/02/16 [History] SUMAtriptan Succinate [Imitrex] 100 mg PO AD PRN 11/02/16 [History] Simvastatin [Zocor] 20 mg PO HS 11/02/16 [History] Tiotropium [Spiriva] 18 mcg IH DAILY 11/02/16 [History] Omeprazole [PriLOSEC] 40 mg PO BID #60 cap 11/05/16 [Rx] Sucralfate [Carafate] 1 g PO QIDAC 30 Days 11/05/16 [Rx] Allergies/Adverse Reactions: Allergies acetaminophen [From Darvocet-N 100] Allergy (Verified 11/02/16 17:30) See Comments atropine [From Urised] Allergy (Verified 11/02/16 17:32) See Comments Benzoic Acid [From Urised] Allergy (Verified 11/02/16 17:32) See Comments Benzoic Acid Allergy (Verified 11/02/16 17:30) See Comments butalbital [From Fioricet] Allergy (Verified 11/02/16 17:30) See Comments caffeine [From Fioricet] Allergy (Verified 11/02/16 17:30) See Comments ciprofloxacin [From Cipro] Allergy (Verified 11/02/16 17:30) See Comments Hyoscyamine Allergy (Verified 11/02/16 17:30) See Comments methenamine Allergy (Verified 11/02/16 17:30) See Comments methylene blue [From Urised] Allergy (Verified 11/02/16 17:32) See Comments NSAIDS (Non-Steroidal Anti-Inflamma Allergy (Verified 11/03/16 11:54) Itching Penicillins Allergy (Verified 11/02/16 17:30) See Comments propoxyphene [From Darvocet-N 100] Allergy (Verified 11/02/16 17:30) See Comments salicylates [From Urised] Allergy (Verified 11/02/16 17:32) See Comments - Respiratory Orders Oxygen / L per min (4L/min via [place]) Smoking Cessation: Smoking cessation has been advised. For more information, call the [place] Tobacco Quit Line at 3-920-CTQT-NOW. - Ancillary Orders May use pressure relief devices daily prn - Advance Directives Code Status: Full Code - Mobility Orders Ambulate - Rehabiliation Orders Rehab Potential: Fair Rehab Orders: ROM Exercises, Evaluation for Physical Therapy, Evaluation for Occupational Therapy - Diet Orders Mechanical Soft (with ground meats), No Concentrated Sweets (diabetic), Cardiac CERTIFICATION: I certify that the transfer of the above named patient to an Extended Care Facility is necessary for the continuing treatment of the diagnosis listed. The above information is true and accurate reflection of patient's current condition. Confidential - Redisclosure prohibited without a patient's written consent.
[2016-11-05] MEDS: *HR* OxyCODONE/APAP 5/325 TABLET PO PRN (13:03)
[2016-11-05] MEDS ORDERED: Ondansetron ODT 4 MG TAB.RAPDIS SL ONE (15:43)
== END 2016-11-05 15:54 | DRG 378 ==
LOC: EMEROO 17:16 → ICNU 22:09 → SUATTDRO 22:09 → ICNU 22:30 → 3ANU 11-04 16:06
PROVIDERS: ADMIT Internal Medicine; ATTEND Internal Medicine
PROC: ENDOEBX (2016-11-03 15:30)

== ENCOUNTER 2017-11-04 10:22 | Observation (INO) ==
[2017-11-04] MEDS ORDERED: Aspirin 81 MG TAB.CHEW PO STA (10:30)
--- NOTE | 2017-11-04 10:34 | Emergency Department Note ---
Disposition Clinical Impression: Atypical chest pain, Shortness of breath Disposition: Admitted As Inpatient Condition: Fair Chest Pain HPI - General Chief Complaint: ED Chest Pain Stated Complaint: chest pain Time Seen by Provider: 11/04/17 10:26 Source: EMS Limitations: no limitations Vital Signs Reviewed: Yes Nursing Notes Reviewed: Yes - History of Present Illness HPI Narrative: Mrs. 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 Heller ) for evaluation of chest pain. Described as mid substernal, squeezing heaviness. Nonradiating. Associated with dyspnea. No diaphoresis, nausea, arm tightness/weakness. Present at rest. Onset this AM at 02:00 and continuous since, rated 8/10. Patient notes she has a history of atrial fibrillation and is felt the symptoms previously which, at that time, were attributes to her atrial fibrillation. PMH: Atrial fibrillation on aspirin 81 by mouth daily, hypertension, hyperlipidemia, diabetes type 2, obesity. 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 No history of ACS or stent placement. ROS: Positive: As above Negative: Fever, chills, nausea, vomiting, palpitations, unusual back pains, headache, changes in vision, vertigo. Severity scale (1-10): 4 - Related Data Home Medications Medication Instructions Recorded Confirmed Acetaminophen [Tylenol] 650 mg PO Q6HR PRN 11/02/16 11/04/17 Benzocaine/Menthol Sunil [Cepacol 1 lozenge MM Q4H PRN 11/02/16 11/04/17 Sore Throat Lozenge] Bisacodyl [Woman's Laxative] 5 mg PO DAILY PRN 11/02/16 11/04/17 Calcium Carbonate/Vitamin D3 1 tab PO BID 11/02/16 11/04/17 [Oyster Shell Calcium-Vit D Tab] Fluticasone/Salmeterol [Advair 1 puff IH BID 11/02/16 11/04/17 250-50 Diskus] Glimepiride [Amaryl] 4 mg PO DAILY 11/02/16 11/04/17 GuaiFENesin/Dextromethorphan 1 tab PO BID 11/02/16 11/04/17 [Mucinex Dm ER 600-30 mg Tablet] Hydrocortisone Butyrate 1 appl TP BID PRN 11/02/16 11/04/17 Insulin ASPART [Novolog Flexpen] 0 unit SQ TIDWM PRN 11/02/16 11/04/17 Loratadine [Allergy Relief] 10 mg PO DAILY 11/02/16 11/04/17 Magnesium Oxide [Mag-Ox] 400 mg PO TID 11/02/16 11/04/17 Menthol [Biofreeze] 1 appl TP BID 11/02/16 11/04/17 Metoclopramide [Reglan] 10 mg PO TID 11/02/16 11/04/17 Metoprolol [Lopressor] 25 mg PO BID 11/02/16 11/04/17 Montelukast [Singulair] 10 mg PO DAILY 11/02/16 11/04/17 Multivitamin with Iron 1 tab PO DAILY 11/02/16 11/04/17 [Multivitamins with Iron] Nitroglycerin [Nitrostat] 0.4 mg SL AD PRN 11/02/16 11/04/17 Oxybutynin Chloride [Ditropan Xl] 10 mg PO DAILY 11/02/16 11/04/17 Oxycodone HCl/Acetaminophen 1 tab PO Q6H PRN 11/02/16 11/04/17 [Percocet 5-325 mg Tablet] Pioglitazone [Actos] 30 mg PO DAILY 11/02/16 11/04/17 SUMAtriptan Succinate [Imitrex] 100 mg PO AD PRN 11/02/16 11/04/17 Simvastatin [Zocor] 20 mg PO HS 11/02/16 11/04/17 Tiotropium [Spiriva] 18 mcg IH DAILY 11/02/16 11/04/17 DULoxetine [Cymbalta] 30 mg PO DAILY 03/31/17 11/04/17 Gabapentin [Neurontin] 300 mg PO TID 03/31/17 11/04/17 Tizanidine HCl [Zanaflex] 4 mg PO TID 03/31/17 11/04/17 Ferrous Sulfate [Iron] 325 mg PO DAILY 11/04/17 11/04/17 Furosemide [Lasix] 40 mg PO DAILY 11/04/17 11/04/17 Glucagon,Human Recombinant 1 mg IJ ONCE PRN 11/04/17 11/04/17 [Glucagon Emergency Kit] Levalbuterol [Xopenex] 2 puff IH Q4H PRN 11/04/17 11/04/17 Omeprazole [PriLOSEC] 20 mg PO BID 11/04/17 11/04/17 Ondansetron HCl [Zofran] 4 mg PO Q6H PRN 11/04/17 11/04/17 Psyllium Husk [Daily Fiber] 2 tab PO DAILY 11/04/17 11/04/17 Sennosides/Docusate Sodium [Sm 1 tab PO BID PRN 11/04/17 11/04/17 Senna-S Tablet] Sucralfate [Carafate] 1 gm PO QIDAC 11/04/17 11/04/17 Umeclidinium [place] [Incruse 1 puff IH DAILY 11/04/17 11/04/17 Ellipta] Previous Rx's Medication Instructions Recorded predniSONE [PredniSONE] 20 mg PO DAILY 5 Days #5 tablet 05/12/17 Allergies Allergy/AdvReac Type Severity Reaction Status Date / Time acetaminophen Allergy See Verified 11/04/17 13:29 [From Darvocet-N 100] Comments atropine [From Urised] Allergy See Verified 11/04/17 13:29 Comments Benzoic Acid [From Urised] Allergy See Verified 11/04/17 13:29 Comments Benzoic Acid Allergy See Verified 11/04/17 13:29 Comments butalbital [From Fioricet] Allergy See Verified 11/04/17 13:29 Comments caffeine [From Fioricet] Allergy See Verified 11/04/17 13:29 Comments ciprofloxacin [From Cipro] Allergy See Verified 11/04/17 13:29 Comments Hyoscyamine Allergy See Verified 11/04/17 13:29 Comments methenamine Allergy See Verified 11/04/17 13:29 Comments methylene blue [From Urised] Allergy See Verified 11/04/17 13:29 Comments NSAIDS (Non-Steroidal Allergy Itching Verified 11/04/17 13:29 Anti-Inflamma Penicillins Allergy See Verified 11/04/17 13:29 Comments propoxyphene Allergy See Verified 11/04/17 13:29 [From Darvocet-N 100] Comments salicylates [From Urised] Allergy See Verified 11/04/17 13:29 Comments All systems ED: reviewed and negative except as stated. Review of Systems: As Per HPI Chest Pain PMH - Past Medical History Medical history: Reports: arthritis, atrial fibrillation, CHF, COPD, diabetes, GERD, hyperlipidemia, hypertension, migraine, renal disease, other Surgical history: Reports: cholecystectomy, ANNABELLA/BSO Psychiatric history: Reports: anxiety, depression - Social History Smoking Status: Never smoker Alcohol use: Reports: none Drug use: Reports: none Physical Exam - General Limitations: no limitations General appearance: alert, in no apparent distress Course Course Narrative: EKG dated 04 Nov 2017 at 10:27 interpreted as sinus rhythm with a rate of 61. Normal intervals. Normal axis. Nonspecific ST-T changes. Compared to previous dated 11/02/2016 showing no acute ischemic changes or comparison. Serum hematology shows mild anemia however this is actually above patient's baseline. Serum chemistry is unremarkable; specifically troponin less than 0.03. Chest x-ray is unremarkable. CTA chest performed given negative workup as above as well as patient's persistent dyspnea. CTA chest shows no PE. Patient's symptoms remain concerning given her atypical chest pain and persistent dyspnea. Discussed the patient with the admitting hospitalist, Dr. Griffith, who agrees to accept the patient for continued evaluation and management for chest pain of uncertain etiology. Chest X-Ray 11/04/17 10:28 IMPRESSION: No acute cardiopulmonary process is identified. D/ / Jermain Irizarry MD / Jermain Irizarry MD Interpreting Provider: Jermain Irizarry MD Chest CTA 11/04/17 10:58 IMPRESSION: No pulmonary embolism is identified. Focal area of bronchial thickening with adjacent ground-glass change suggestive of bronchiolitis in the right upper lobe. No confluent area of pneumonia, pleural effusion or other acute concerning process seen in the chest. No spiculated lung mass or lymphadenopathy. D/ / Jermain Irizarry MD / Jermain Irizarry MD Interpreting Provider: Jermain Irizarry MD Vital Signs Temperature 98.1 F 11/04/17 10:24 Pulse Rate 63 11/04/17 10:24 Respiratory Rate 18 05/03/18 10:24 Blood Pressure 144/63 11/04/17 10:24 O2 Sat by Pulse Oximetry 97 11/04/17 10:24 Temperature 98.4 F 11/04/17 14:04 Pulse Rate 60 11/04/17 14:04 Respiratory Rate 16 11/04/17 14:04 Blood Pressure 188/90 11/04/17 14:04 O2 Sat by Pulse Oximetry 91 11/04/17 14:04 Oxygen Delivery Oxygen Delivery Room Air Chest Pain - Lab Data Result diagrams: 11/04/17 10:43 11/04/17 10:43 Lab Results 11/04/17 11/04/17 11/04/17 Range/Units 10:43 10:43 10:43 WBC 4.1 L (4.3-11.1) K/mcL RBC 3.90 (3.82-4.97) M/mcL Hgb 10.0 L (11.5-15.4) g/dL Hct 32.6 L (35.3-44.9) % MCV 83.6 (83.0-100.0) fL MCH 25.6 L (28.0-33.3) pg MCHC 30.7 L (31.6-35.5) g/dL RDW 15.3 H (11.5-14.5) % Plt Count 186 (140-400) K/mcL MPV 10.5 (9.4-12.4) fL Immature Gran % 0.5 (0-4) % Seg Neutrophils % 65.4 % Lymphocytes % 21.7 % Monocytes % 9.5 % Eosinophils % 2.4 % Basophils % 0.5 % Neutrophils # 2.7 (1.6-8.9) K/mcL Lymphocytes # 0.9 (0.6-4.6) K/mcL Monocytes # 0.4 (0.0-1.3) K/mcL Eosinophils # 0.1 (0.0-0.6) K/mcL Basophils # 0.0 (0.0-0.2) K/mcL PT 12.4 H (9.4-12.1) Seconds INR 1.1 APTT 29.8 (26.0-36.0) Seconds Sodium 133 L (136-145) mEq/L Potassium 4.5 (3.5-5.1) mEq/L Chloride 100 (98-107) mEq/L Carbon Dioxide 29 (23-29) mEq/L BUN 18 (8-23) mg/dL Creatinine 0.87 (0.60-1.20) mg/dL Est GFR ( Amer) > 60 (> 60) Est GFR (Non-Af Amer) > 60 (> 60) BUN/Creatinine Ratio 21 (6-26) Glucose 156 H (70-105) mg/dL Calculated Osmolality 281 (280-300) Calcium 9.3 (8.6-10.3) mg/dL Troponin I < 0.03 (< 0.04) ng/mL Heart Score - Score History: Slightly Suspicious EKG: Non Specific repolarisation Disturbance Age: Greater than 65 Risk Factors: Equal/Greater than 3 risk factor or history of atherosclerotic disease Troponin: Less than normal limit HEART Score Total: 5 Attestation Statement - Attestation Attestation: I, Zacarias Caputo DO, examined this patient [id number] and my medical decision-making was reviewed with Dr. Everardo Eng, Resident Physician. I agree with the documented findings, disposition and treatment plan as described except to the extent set forth below. Please see my progress notes for details.
[2017-11-04] MEDS ORDERED: Isovue-370 500 ML INFUS..BTL IV ONE (10:58)
[2017-11-04 11:03] LABS: INR 1.1; Prothrombin Time 12.4 Seconds (9.4-12.1)
[2017-11-04 11:06] LABS: Activated Partial Thrombo Time 29.8 Seconds (26.0-36.0)
[2017-11-04 11:09] LABS: Basophils % 0.5 %; Eosinophils # 0.1 K/mcL (0.0-0.6); Eosinophils % 2.4 %; Hematocrit 32.6 % (35.3-44.9); Immature Granulocytes % 0.5 % (0-4); Lymphocytes # 0.9 K/mcL (0.6-4.6); Lymphocytes % 21.7 %; Mean Corpuscular HGB Conc 30.7 g/dL (31.6-35.5); Mean Corpuscular Hemoglobin 25.6 pg (28.0-33.3); Mean Corpuscular Volume 83.6 fL (83.0-100.0); Mean Platelet Volume 10.5 fL (9.4-12.4); Monocytes # 0.4 K/mcL (0.0-1.3); Monocytes % 9.5 %; Neutrophils # 2.7 K/mcL (1.6-8.9); Platelet Count 186 K/mcL (140-400); Red Cell Distribution Width 15.3 % (11.5-14.5); Segmented Neutrophils % 65.4 %
[2017-11-04 11:11] LABS: BUN/Creatinine Ratio 21 (6-26); Blood Urea Nitrogen 18 mg/dL (8-23); Calcium 9.3 mg/dL (8.6-10.3); Carbon Dioxide 29 mEq/L (23-29); Chloride 100 mEq/L (98-107); Glucose 156 mg/dL (70-105); Osmolality,Calculated 281 (280-300); Potassium 4.5 mEq/L (3.5-5.1); Sodium 133 mEq/L (136-145); eGFR For African Americans > 60 (> 60); eGFR For Non-African Americans > 60 (> 60)
[2017-11-04 11:12] LABS: Troponin I < 0.03 ng/mL (< 0.04)
--- NOTE | 2017-11-04 11:15 | Emergency Department Note ---
Disposition Clinical Impression: Atypical chest pain, Shortness of breath Disposition: Admitted As Inpatient Condition: Fair Time of Disposition: 13:24 General Adult HPI - General Chief complaint: ED Chest Pain Stated complaint: chest pain Time Seen by Provider: 11/04/17 10:26 Source: EMS Limitations: no limitations - History of Present Illness Pain Scale: 4 - Related Data Home Medications Medication Instructions Recorded Confirmed Acetaminophen [Tylenol] 650 mg PO Q6HR PRN 11/02/16 05/12/17 Albuterol Neb [Proventil Neb] 2.5 mg IH QID 11/02/16 05/12/17 Albuterol Sulfate [Albuterol 1 puff IH Q4HR 11/02/16 05/12/17 Inhaler] Aspirin [Lo-Dose Aspirin EC] 81 mg PO DAILY 11/02/16 05/12/17 Benzocaine/Menthol Sunil [Cepacol 1 lozenge MM Q4H PRN 11/02/16 05/12/17 Sore Throat Lozenge] Bisacodyl [Woman's Laxative] 5 mg PO DAILY PRN 11/02/16 05/12/17 Calcium Carbonate/Vitamin D3 1 tab PO BID 11/02/16 05/12/17 [Oyster Shell Calcium-Vit D Tab] Fluticasone/Salmeterol [Advair 1 puff IH BID 11/02/16 05/12/17 250-50 Diskus] Furosemide [Lasix] 20 mg PO DAILY 11/02/16 05/12/17 Glimepiride [Amaryl] 4 mg PO DAILY 11/02/16 05/12/17 GuaiFENesin/Dextromethorphan 1 tab PO BID 11/02/16 05/12/17 [Mucinex Dm ER 600-30 mg Tablet] Hydrocortisone Butyrate 1 appl TP BID PRN 11/02/16 05/12/17 Insulin ASPART [Novolog Flexpen] 2 - 10 unit SQ TIDWM 11/02/16 05/12/17 Loratadine [Allergy Relief] 10 mg PO DAILY 11/02/16 05/12/17 Mag Hydrox/Al Hydrox/Simeth 15 ml PO Q6H PRN 11/02/16 05/12/17 [Maalox] Magnesium Oxide [Mag-Ox] 400 mg PO TID 11/02/16 05/12/17 Menthol [Biofreeze] 1 appl TP BID 11/02/16 05/12/17 Metoclopramide [Reglan] 10 mg PO TID 11/02/16 05/12/17 Metoprolol [Lopressor] 25 mg PO BID 11/02/16 05/12/17 Montelukast [Singulair] 10 mg PO DAILY 11/02/16 05/12/17 Multivitamin with Iron 1 tab PO DAILY 11/02/16 05/12/17 [Multivitamins with Iron] Nitroglycerin [Nitrostat] 0.4 mg SL AD PRN 11/02/16 05/12/17 Oxybutynin Chloride [Ditropan Xl] 10 mg PO DAILY 11/02/16 05/12/17 Oxycodone HCl/Acetaminophen 1 tab PO Q6H PRN 11/02/16 05/12/17 [Percocet 5-325 mg Tablet] Pioglitazone [Actos] 30 mg PO DAILY 11/02/16 05/12/17 SUMAtriptan Succinate [Imitrex] 100 mg PO AD PRN 11/02/16 05/12/17 Simvastatin [Zocor] 20 mg PO HS 11/02/16 05/12/17 Tiotropium [Spiriva] 18 mcg IH DAILY 11/02/16 05/12/17 DULoxetine [Cymbalta] 30 mg PO DAILY 03/31/17 05/12/17 Gabapentin [Neurontin] 300 mg PO TID 03/31/17 05/12/17 Tizanidine HCl [Zanaflex] 4 mg PO TID 03/31/17 05/12/17 Previous Rx's Medication Instructions Recorded predniSONE [PredniSONE] 20 mg PO DAILY 5 Days #5 tablet 05/12/17 Allergies Allergy/AdvReac Type Severity Reaction Status Date / Time acetaminophen Allergy See Verified 05/12/17 07:50 [From Darvocet-N 100] Comments atropine [From Urised] Allergy See Verified 05/12/17 07:50 Comments Benzoic Acid [From Urised] Allergy See Verified 05/12/17 07:50 Comments Benzoic Acid Allergy See Verified 05/12/17 07:50 Comments butalbital [From Fioricet] Allergy See Verified 05/12/17 07:50 Comments caffeine [From Fioricet] Allergy See Verified 05/12/17 07:50 Comments ciprofloxacin [From Cipro] Allergy See Verified 05/12/17 07:50 Comments Hyoscyamine Allergy See Verified 05/12/17 07:50 Comments methenamine Allergy See Verified 05/12/17 07:50 Comments methylene blue [From Urised] Allergy See Verified 05/12/17 07:50 Comments NSAIDS (Non-Steroidal Allergy Itching Verified 05/12/17 07:50 Anti-Inflamma Penicillins Allergy See Verified 05/12/17 07:50 Comments propoxyphene Allergy See Verified 05/12/17 07:50 [From Darvocet-N 100] Comments salicylates [From Urised] Allergy See Verified 05/12/17 07:50 Comments Past Medical History - Past Medical History Medical history: Reports: arthritis, atrial fibrillation, CHF, COPD, diabetes, GERD, hyperlipidemia, hypertension, migraine, renal disease, other Surgical history: Reports: cholecystectomy, ANNABELLA/BSO Psychiatric history: Reports: anxiety, depression - Social History Smoking Status: Never smoker Smokeless Tobacco Status: No Alcohol use: Reports: none Drug use: Reports: none Physical Exam - General Limitations: no limitations General appearance: alert, in no apparent distress Course Vital Signs Temperature 98.1 F 11/04/17 10:24 Pulse Rate 63 11/04/17 10:24 Respiratory Rate 18 11/04/17 10:24 Blood Pressure 144/63 11/04/17 10:24 O2 Sat by Pulse Oximetry 97 11/04/17 10:24 Temperature 98.1 F 11/04/17 10:24 Pulse Rate 62 11/04/17 11:44 Respiratory Rate 15 11/04/17 13:13 Blood Pressure 180/85 11/04/17 13:13 O2 Sat by Pulse Oximetry 94 11/04/17 11:35 Oxygen Delivery Oxygen Delivery Room Air Medical Decision Making - Lab Data Result diagrams: 11/04/17 10:43 11/04/17 10:43 Lab Results 11/04/17 11/04/17 11/04/17 Range/Units 10:43 10:43 10:43 WBC 4.1 L (4.3-11.1) K/mcL RBC 3.90 (3.82-4.97) M/mcL Hgb 10.0 L (11.5-15.4) g/dL Hct 32.6 L (35.3-44.9) % MCV 83.6 (83.0-100.0) fL MCH 25.6 L (28.0-33.3) pg MCHC 30.7 L (31.6-35.5) g/dL RDW 15.3 H (11.5-14.5) % Plt Count 186 (140-400) K/mcL MPV 10.5 (9.4-12.4) fL Immature Gran % 0.5 (0-4) % Seg Neutrophils % 65.4 % Lymphocytes % 21.7 % Monocytes % 9.5 % Eosinophils % 2.4 % Basophils % 0.5 % Neutrophils # 2.7 (1.6-8.9) K/mcL Lymphocytes # 0.9 (0.6-4.6) K/mcL Monocytes # 0.4 (0.0-1.3) K/mcL Eosinophils # 0.1 (0.0-0.6) K/mcL Basophils # 0.0 (0.0-0.2) K/mcL PT 12.4 H (9.4-12.1) Seconds INR 1.1 APTT 29.8 (26.0-36.0) Seconds Sodium 133 L (136-145) mEq/L Potassium 4.5 (3.5-5.1) mEq/L Chloride 100 (98-107) mEq/L Carbon Dioxide 29 (23-29) mEq/L BUN 18 (8-23) mg/dL Creatinine 0.87 (0.60-1.20) mg/dL Est GFR ( Amer) > 60 (> 60) Est GFR (Non-Af Amer) > 60 (> 60) BUN/Creatinine Ratio 21 (6-26) Glucose 156 H (70-105) mg/dL Calculated Osmolality 281 (280-300) Calcium 9.3 (8.6-10.3) mg/dL Troponin I < 0.03 (< 0.04) ng/mL Attestation Statement - Attestation Attestation: I, Zacarias Caputo DO, examined this patient [id number] and my medical decision-making was reviewed with Dr. Everardo Eng Resident Physician. I agree with the documented findings, disposition and treatment plan as described except to the extent set forth below. Please see my progress notes for details. 72-year-old female presents to the emergency room with complaint of shortness of breath and chest pain. Patient is from an extended care facility. She was going to outpatient evaluation this morning with her personal property assessor Dr. Heller. He is concerned because the chest pain symptoms along with the patient's history recommended that she come to the emergency room. Patient does have nitroglycerin at home but she has not taken this morning. She has had anginal- like chest pain since 2 AM this morning. Currently she is denying any shortness of breath headache vision changes nausea vomiting or diarrhea. Denies any fevers or chills trauma injuries or falls. Her main complaint is chest tightness and pain similar to all of her other events. On physical exam this is a morbidly obese female sitting in her bed. She is chronically disabled and does not ambulate at home at all at this point still. She does have residual effects from a previous stroke and that most of her symptoms at this time here today. She denies any changes in the symptoms at this point. Head is atraumatic pupils are equal round and reactive oromucosa is moist. Trachea is midline. Lungs are clear heart is regular. Abdomen is soft nontender nondistended with no guarding or rigidity. She does not have any change in the presentation of her lower extremities and she says that she feels that she is at baseline outside of her chest pain. Cardiac evaluation will be completed including EKG nitroglycerin and aspirin to be established and provided. Patient will also CBC chemistry troponin and BNP to this time. Secondary to her history of not ambulating patient will have CT angiography the chest ordered at this point as well. Patient will most likely require admission. She is not currently on any blood thinners. We will continue to monitor here as a treatment course of physical exam are completed. See detailed documentation of the physical exam, medical intervention, medical decision-making and disposition in the resident physician's note. No critical care applied to the patient's treatment course at this time. [address] angiography the chest that shows bronchial wall thickening in the right upper lobe of the lung. No signs of pneumonia infection or obstruction noted. No signs of pulmonary emboli. Patient will not be started on antibiotics. Her pain has gotten slightly better with the pain medication. Initial troponin as well as EKG did not show any acute pathology or issue. Patient said he symptoms since 2 AM so less likely this is angina this point. Patient will be admitted for acute coronary syndrome rule out as well as stabilization of her presenting issues. No other acute pathology noted at this point. Patient has been hemodynamically stable throughout the treatment course and does not require any further intervention at this time. Hospitalist Dr. elmore reviewed the workup and evaluation here in the emergency room and it visualize the patient here in the emergency room as well. He had no other acute recommendations or changes at this point. Patient is otherwise stable at the time of admission.
[2017-11-04] MEDS: Nitroglycerin 0.4 MG TAB.SUBL SL PRN ×4 (11:24→20:31)
[2017-11-04] MEDS ORDERED: *HR* HYDROcodone/Acet 5/325 mg TABLET PO ONE (12:18)
[2017-11-04] MEDS ORDERED: *HR* FentaNYL (PF) 100 MCG/2 ML VIAL IVP ONE (12:18)
[2017-11-04] MEDS ORDERED: Naloxone 0.4 MG/ML INJ IVP PRN (13:50)
[2017-11-04] MEDS ORDERED: Nitroglycerin 0.4 MG TAB.SUBL SL PRN (13:53)
--- NOTE | 2017-11-04 14:04 | Internal Med History&Physical ---
Date of Encounter: 11/04/17 Time of Encounter: 14:03 Internal Medicine - H&P: HPI Chief complaint: Chest pain Admitted From: Emergency Dept Plans for Post Hospital Care: Home History of present illness: Ms. Sahu is a 72 year old female was apparent medical history of atrial fibrillation, CHF, COPD, diabetes, hypertension, dyslipidemia, chronic kidney disease, chest pain esophageal reflux disease, patient previously underwent cholecystectomy. Patient was in the cardiology office this morning and she experienced persistent chest pain. Patient was sent from cardiology office to emergency room for evaluation. Patient denies nausea, vomiting, abdominal pain, dizziness and diarrhea. Workup in the emergency room: Patient was evaluated in the emergency room. Baseline labs are drawn. EKG was done. Reason for admission: Chest pain to rule out acute coronary syndrome as recommended by cardiology. Past Med Surg Social Fam HX - Past Medical History Medical history: arthritis, atrial fibrillation, CHF, COPD, diabetes, GERD, hyperlipidemia, hypertension, migraine, renal disease, other Psychiatric history: anxiety, depression - Past Surgical History Surgical History: cholecystectomy, ANNABELLA/BSO - Social History Smoking Status: Never smoker Smokeless Tobacco Status: No Alcohol use: none Drug use: none - Family History Mother Adopted: No Living Status: Hx Family Cancer: Yes Father Living Status: Hx Family Cardiac Disorders: Yes Internal Medicine - H&P: Meds Acetaminophen [Tylenol] 650 mg PO Q6HR PRN 11/02/16 [History] Benzocaine/Menthol Sunil [Cepacol Sore Throat Lozenge] 1 lozenge MM Q4H PRN [History] Bisacodyl [Woman's Laxative] 5 mg PO DAILY PRN 11/02/16 [History] Calcium Carbonate/Vitamin D3 [Oyster Shell Calcium-Vit D Tab] 1 tab PO BID 11/02 [History] Fluticasone/Salmeterol [Advair 250-50 Diskus] 1 puff IH BID 11/02/16 [History] Glimepiride [Amaryl] 4 mg PO DAILY 11/02/16 [History] GuaiFENesin/Dextromethorphan [Mucinex Dm ER 600-30 mg Tablet] 1 tab PO BID 11/02 [History] Hydrocortisone Butyrate 1 appl TP BID PRN 11/02/16 [History] Insulin ASPART [Novolog Flexpen] 0 unit SQ TIDWM PRN 11/02/16 [History] Loratadine [Allergy Relief] 10 mg PO DAILY 11/02/16 [History] Magnesium Oxide [Mag-Ox] 400 mg PO TID 11/02/16 [History] Menthol [Biofreeze] 1 appl TP BID 11/02/16 [History] Metoclopramide [Reglan] 10 mg PO TID 11/02/16 [History] Metoprolol [Lopressor] 25 mg PO BID 11/02/16 [History] Montelukast [Singulair] 10 mg PO DAILY 11/02/16 [History] Multivitamin with Iron [Multivitamins with Iron] 1 tab PO DAILY 11/02/16 [ History] Nitroglycerin [Nitrostat] 0.4 mg SL AD PRN 11/02/16 [History] Oxybutynin Chloride [Ditropan Xl] 10 mg PO DAILY 11/02/16 [History] Oxycodone HCl/Acetaminophen [Percocet 5-325 mg Tablet] 1 tab PO Q6H PRN [History] Pioglitazone [Actos] 30 mg PO DAILY 11/02/16 [History] SUMAtriptan Succinate [Imitrex] 100 mg PO AD PRN 11/02/16 [History] Simvastatin [Zocor] 20 mg PO HS 11/02/16 [History] Tiotropium [Spiriva] 18 mcg IH DAILY 11/02/16 [History] DULoxetine [Cymbalta] 30 mg PO DAILY 03/31/17 [History] Gabapentin [Neurontin] 300 mg PO TID 03/31/17 [History] Tizanidine HCl [Zanaflex] 4 mg PO TID 03/31/17 [History] predniSONE [PredniSONE] 20 mg PO DAILY 5 Days #5 tablet 05/12/17 [Rx] Ferrous Sulfate [Iron] 325 mg PO DAILY 11/04/17 [History] Furosemide [Lasix] 40 mg PO DAILY 11/04/17 [History] Glucagon,Human Recombinant [Glucagon Emergency Kit] 1 mg IJ ONCE PRN 11/04/17 [ History] Levalbuterol [Xopenex] 2 puff IH Q4H PRN 11/04/17 [History] Omeprazole [PriLOSEC] 20 mg PO BID 11/04/17 [History] Ondansetron HCl [Zofran] 4 mg PO Q6H PRN 11/04/17 [History] Psyllium Husk [Daily Fiber] 2 tab PO DAILY 11/04/17 [History] Sennosides/Docusate Sodium [Sm Senna-S Tablet] 1 tab PO BID PRN 11/04/17 [ History] Sucralfate [Carafate] 1 gm PO QIDAC 11/04/17 [History] Umeclidinium Moro [Incruse Ellipta] 1 puff IH DAILY 11/04/17 [History] 3 Allergy/AdvReac Type Severity Reaction Status Date / Time acetaminophen Allergy See Verified 11/04/17 13:29 [From Darvocet-N 100] Comments atropine [From Urised] Allergy See Verified 11/04/17 13:29 Comments Benzoic Acid [From Urised] Allergy See Verified 11/04/17 13:29 Comments Benzoic Acid Allergy See Verified 11/04/17 13:29 Comments butalbital [From Fioricet] Allergy See Verified 11/04/17 13:29 Comments caffeine [From Fioricet] Allergy See Verified 11/04/17 13:29 Comments ciprofloxacin [From Cipro] Allergy See Verified 11/04/17 13:29 Comments Hyoscyamine Allergy See Verified 11/04/17 13:29 Comments methenamine Allergy See Verified 11/04/17 13:29 Comments methylene blue [From Urised] Allergy See Verified 11/04/17 13:29 Comments NSAIDS (Non-Steroidal Allergy Itching Verified 11/04/17 13:29 Anti-Inflamma Penicillins Allergy See Verified 11/04/17 13:29 Comments propoxyphene Allergy See Verified 11/04/17 13:29 [From Darvocet-N 100] Comments salicylates [From Urised] Allergy See Verified 11/04/17 13:29 Comments All Systems PM: A 10-system review of systems was performed and is negative for pertinent findings except as documented above in the HPI. - Constitutional Constitutional: no chills, no fever(s), no night sweats - EENT Eyes: no change in vision, no discharge, no pain, no photophobia Ears: no ear discharge, no ear pain, no tinnitus Nose, mouth and throat: no dysphagia, no nasal discharge, no neck pain, no sore throat - Cardiovascular Cardiovascular ROS IM: chest pain, no diaphoresis, no dyspnea, no lightheadedness, no palpitations, no syncope - Respiratory Respiratory: no cough, no dyspnea, no wheezing, no excessive phlegm production - Gastrointestinal Gastrointestinal: no abdominal pain, no diarrhea, no hematemesis, no hematochezia, no melena, no nausea, no vomiting - Genitourinary Genitourinary: no change in urinary stream, no dysuria, no flank pain, no hematuria - Musculoskeletal Musculoskeletal ROS IM: no numbness, no tingling - Integumentary Integumentary IM: no rash, no unusual bruising - Neurological Neurological ROS: no confusion, no convulsions, no focal weakness, no numbness, no tingling, no tremor(s) - Hematologic/Lymphatic Hematologic/Lymphatic: no easy bruising - Constitutional Vitals: Temp Pulse Resp BP Pulse Ox 98.1 F 62 15 180/85 94 11/04/17 10:24 11/04/17 11:44 11/04/17 13:13 11/04/17 13:13 11/04/17 11:35 General appearance: Present: A&O X 3, pleasant, no acute distress, answers questions appropriately - Head Head exam: Present: atraumatic, normocephalic - Eye Eye exam: Present: PERRL, conjuntiva pink, sclera anicteric Pupils: Present: PERRL - Neck Neck exam general surgery: Present: supple, trachea midline. Absent: lymphadenopathy - Respiratory Respiratory exam: Present: CTAB. Absent: accessory muscle use, rales, rhonchi, wheezes - Cardiovascular Cardiovascular exam: Present: RRR, +S1, +S2. Absent: diastolic murmur, gallop, rubs, systolic murmur - GI/Abdominal GI/Abdominal exam: Present: normal bowel sounds, soft, no peritoneal signs. Absent: distended, tenderness - Extremities Exam Extremities exam: Present: warm, radial pulses palpable and symmetrical. Absent : calf tenderness, cyanotic, pedal edema - Neurological Exam Neurological exam: Present: CN II-XII intact, oriented X3, no focal deficits. Absent: pronater drift, facial droop, speech deficit - Skin Skin exam: Present: dry, intact Internal Med - H&P Results - Labs CBC & Chem 7: 11/04/17 10:43 11/04/17 10:43 - Assessment and plan (1) Atypical chest pain Current Visit: Yes Status: Acute Assessment and plan: 72/female Was in the cardiology office. Had a persistent chest pain. We will admit as observation. Cycle troponin. Echocardiogram. I examined this patient in the emergency room #26. Plan of care explained to the patient at length. (2) Morbid obesity Current Visit: No Status: Acute Assessment and plan: Patient's BMI is 42. She will get benefit from the outpatient bariatric surgery. (3) COPD (chronic obstructive pulmonary disease) Current Visit: No Status: Chronic Assessment and plan: Patient is known to have a stable COPD. At this point patient is not in exacerbation. We will resume the home medications Qualifiers: COPD type: unspecified COPD Qualified Code(s): J44.9 - Chronic obstructive pulmonary disease, unspecified (4) Diabetes Current Visit: No Status: Chronic Assessment and plan: Patient is known to have a diabetes mellitus. At this point patient is on Septra DS insulin order set. 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 Presently patient is on antihypertensive medication. Patient's blood pressure is within acceptable range. We will continue home medication Qualifiers: Hypertension type: essential hypertension Qualified Code(s): I10 - Essential (primary) hypertension (6) DVT prophylaxis Current Visit: Yes Status: Acute Assessment and plan: In view of the previous GI bleed this patient is not a candidate for pharmacological DVT prophylaxis. SCD provided. Medical decision making: This patient has a moderate to severe risk of worsening in spite of being on appropriate medication due to the underlying complex medical condition. - Time Spent With Patient Total time spent is greater than 50% in coordination of care (as documented) at patient's floor/unit and/or counseling patient:
[2017-11-04] MEDS ORDERED: Dextrose Gel 15 GM/37.5 ML TUBE PO PRN ×2 (14:22)
[2017-11-04] MEDS ORDERED: *HR* Dextrose 50 % in Water (Syg) 50 ML SYRINGE IVP PRN (14:22)
[2017-11-04] MEDS ORDERED: D5% in Water 1,000 ML IVC PRN (14:22)
[2017-11-04] MEDS: tiZANidine 4 MG TABLET PO SCH ×2 (14:36→20:44)
[2017-11-04] MEDS: Magnesium Oxide 400 MG TABLET PO SCH ×2 (14:36→20:45)
[2017-11-04] MEDS: Gabapentin 300 MG CAPSULE PO SCH ×2 (14:36→20:45)
--- NOTE | 2017-11-04 16:11 | Electrocardiograph Report ---
[place] [id number] Test Date: 2017-11-04 Pat Name: Erna Sahu Department: 104 Room: 3B Gender: F Complaint Investigations Officer: ADRIANA : 1945 Requested By: Everardo Eng Order Number: [id number] Reading MD: Heather Grijalva Measurements Intervals [place] Rate: 61 P: ND: 0 QRS: 28 QRSD: 98 T: 64 QT: 402 QTc: 405 Interpretive Statements NORMAL SINUS RHYTHM Electronically Signed On 11-04-2017 16:09:50 EDT by Heather Grijalva
[2017-11-04] MEDS: Insulin LISPRO 300 UNITS/3 ML VIAL SQ SCH (16:26)
[2017-11-04] MEDS: Sucralfate 1 GM TABLET PO SCH ×2 (17:08→20:45)
[2017-11-04] MEDS: *HR* HYDROcodone/Acet 5/325 mg TABLET PO PRN ×2 (17:40→23:38)
[2017-11-04] MEDS: Budesonide/Formoterol 80/4.5 MDI IH SCH (21:22)
[2017-11-05] MEDS ORDERED: Acetaminophen 325 MG TABLET PO ONE (04:02)
[2017-11-05 05:21] LABS: Basophils % 1.1 %; Eosinophils # 0.1 K/mcL (0.0-0.6); Eosinophils % 2.4 %; Hematocrit 32.2 % (35.3-44.9); Hemoglobin 9.9 g/dL (11.5-15.4); INR 1.1; Immature Granulocytes % 0.3 % (0-4); Lymphocytes # 1.1 K/mcL (0.6-4.6); Lymphocytes % 30.5 %; Mean Corpuscular HGB Conc 30.7 g/dL (31.6-35.5); Mean Corpuscular Hemoglobin 25.5 pg (28.0-33.3); Monocytes # 0.4 K/mcL (0.0-1.3); Monocytes % 10.7 %; Neutrophils # 2.1 K/mcL (1.6-8.9); Platelet Count 172 K/mcL (140-400); Prothrombin Time 12.2 Seconds (9.4-12.1); Red Blood Count 3.88 M/mcL (3.82-4.97)
[2017-11-05 05:23] LABS: Activated Partial Thrombo Time 27.8 Seconds (26.0-36.0)
[2017-11-05 05:40] LABS: Alanine Aminotransferase 9 Units/L (7-52); Albumin 3.5 g/dL (3.5-5.7); Albumin/Globulin Ratio 1.2 (1.1-2.2); Alkaline Phosphatase 44 Units/L (34-104); Aspartate Amino Transferase 13 Units/L (13-39); BUN/Creatinine Ratio 22 (6-26); Bilirubin,Total 0.2 mg/dL (0.3-1.0); Blood Urea Nitrogen 17 mg/dL (8-23); Calcium 9.3 mg/dL (8.6-10.3); Carbon Dioxide 28 mEq/L (23-29); Chloride 102 mEq/L (98-107); Chol/HDL Ratio 6.9 (0-4.9); Cholesterol 270 mg/dL (< 200); Glucose 164 mg/dL (70-105); HDL Cholesterol 39 mg/dL (40-59); LDL Cholesterol,Calculated 152 mg/dL (0-99); Magnesium 1.8 mg/dL (1.6-2.6); Osmolality,Calculated 287 (280-300); Phosphorous 3.6 mg/dL (2.7-4.5); Potassium 4.4 mEq/L (3.5-5.1); Sodium 136 mEq/L (136-145); Total Protein 6.5 g/dL (6.4-8.9); Triglycerides 397 mg/dL (< 150); eGFR For African Americans > 60 (> 60); eGFR For Non-African Americans > 60 (> 60)
[2017-11-05] MEDS: Sucralfate 1 GM TABLET PO SCH ×4 (06:40→21:41)
[2017-11-05] MEDS: Insulin LISPRO 300 UNITS/3 ML VIAL SQ SCH ×3 (08:25→17:04)
[2017-11-05] MEDS: Furosemide 40 MG TABLET PO SCH (08:31)
[2017-11-05] MEDS: Gabapentin 300 MG CAPSULE PO SCH ×3 (08:31→19:44)
[2017-11-05] MEDS: tiZANidine 4 MG TABLET PO SCH ×3 (08:31→19:43)
[2017-11-05] MEDS: Magnesium Oxide 400 MG TABLET PO SCH ×3 (08:31→19:43)
[2017-11-05] MEDS: Loratadine 10 MG TABLET PO SCH (08:31)
[2017-11-05] MEDS: Cholecalciferol (D-3) 1,000 UNIT TABLET PO SCH (08:32)
[2017-11-05] MEDS: predniSONE 20 MG TABLET PO SCH (08:32)
[2017-11-05] MEDS ORDERED: *HR* Glimepiride 4 MG TABLET PO SCH (09:00)
[2017-11-05] MEDS ORDERED: (Umeclidinium Bromide [Incruse Ellipta] 1 PUFF) IH SCH (09:00)
[2017-11-05] MEDS: Budesonide/Formoterol 80/4.5 MDI IH SCH ×2 (10:39→21:46)
[2017-11-05] MEDS: Tiotropium 18 MCG inhalation IH SCH (10:39)
[2017-11-05] MEDS: Ondansetron ODT 4 MG TAB.RAPDIS SL PRN (10:47)
[2017-11-05] MEDS: *HR* HYDROcodone/Acet 5/325 mg TABLET PO PRN ×2 (12:28→19:43)
--- NOTE | 2017-11-05 12:37 | Cardiology Consult Note ---
<Samantha Tierney - Last Filed: 11/05/17 12:45> Date of Encounter: 11/05/17 Time of Encounter: 12:37 Assessment and Plan (1) Atypical chest pain Current Visit: Yes Status: Acute Patient having constant midsternal chest pain. Troponin WNL x3. Echo completed and showed EF of 55-60%. Patient does have known recurrent esophageal stenosis and dysphagia. Stress test pending at this time. Will reevaluate patient when this is completed. Discussion w patient/family: The assessment and plan as outlined above was discussed with the patient and/or family members who expressed understanding and agreement. All questions were answered. Thank you for involving us in the care of your patient. Please call with any questions. History of Present Illness Consult date: 11/05/17 Consult reason: Atypical chest pain History of present illness: Ms. Sahu is a 72 year old female with significant PMHx of hyperlipidemia, hypertension, CHF, COPD and diabetes admitted to the hospital for constant substernal chest pain. Patient states she went to outpatient cardiology clinic for surgical clearance for an eye surgery. When she was seen she stated she was having active chest pain and sent to the ER for further evaluation. Patient states the pain is located midsternally and does not radiate. Mild nausea associated with it but no diaphoresis or vomiting. Patient does have known recurrent esophogeal stenosis and dysphagia. Patient states she has been nauseous for the past couple days as well. Patient denies any stents or history of CABG. Denies chest pain at this time. Past Med Surg Social Fam HX - Past Medical History Medical history: arthritis, atrial fibrillation, CHF, COPD, diabetes, GERD, hyperlipidemia, hypertension, migraine, renal disease, other Psychiatric history: anxiety, depression - Past Surgical History Surgical History: cholecystectomy, ANNABELLA/BSO - Social History Smoking Status: Never smoker Smokeless Tobacco Status: No Alcohol use: none Drug use: none - Family History Mother Adopted: No Living Status: Hx Family Cancer: Yes Father Living Status: Hx Family Cardiac Disorders: Yes Medications and Allergies Acetaminophen [Tylenol] 650 mg PO Q6HR PRN 11/02/16 [History] Benzocaine/Menthol Sunil [Cepacol Sore Throat Lozenge] 1 lozenge MM Q4H PRN [History] Bisacodyl [Woman's Laxative] 5 mg PO DAILY PRN 11/02/16 [History] Calcium Carbonate/Vitamin D3 [Oyster Shell Calcium-Vit D Tab] 1 tab PO BID 11/02 [History] Fluticasone/Salmeterol [Advair 250-50 Diskus] 1 puff IH BID 11/02/16 [History] Glimepiride [Amaryl] 4 mg PO DAILY 11/02/16 [History] GuaiFENesin/Dextromethorphan [Mucinex Dm ER 600-30 mg Tablet] 1 tab PO BID 11/02 [History] Hydrocortisone Butyrate 1 appl TP BID PRN 11/02/16 [History] Insulin ASPART [Novolog Flexpen] 0 unit SQ TIDWM PRN 11/02/16 [History] Loratadine [Allergy Relief] 10 mg PO DAILY 11/02/16 [History] Magnesium Oxide [Mag-Ox] 400 mg PO TID 11/02/16 [History] Menthol [Biofreeze] 1 appl TP BID 11/02/16 [History] Metoclopramide [Reglan] 10 mg PO TID 11/02/16 [History] Metoprolol [Lopressor] 25 mg PO BID 11/02/16 [History] Montelukast [Singulair] 10 mg PO DAILY 11/02/16 [History] Multivitamin with Iron [Multivitamins with Iron] 1 tab PO DAILY 11/02/16 [ History] Nitroglycerin [Nitrostat] 0.4 mg SL AD PRN 11/02/16 [History] Oxybutynin Chloride [Ditropan Xl] 10 mg PO DAILY 11/02/16 [History] Oxycodone HCl/Acetaminophen [Percocet 5-325 mg Tablet] 1 tab PO Q6H PRN [History] Pioglitazone [Actos] 30 mg PO DAILY 11/02/16 [History] SUMAtriptan Succinate [Imitrex] 100 mg PO AD PRN 11/02/16 [History] Simvastatin [Zocor] 20 mg PO HS 11/02/16 [History] Tiotropium [Spiriva] 18 mcg IH DAILY 11/02/16 [History] DULoxetine [Cymbalta] 30 mg PO DAILY 03/31/17 [History] Gabapentin [Neurontin] 300 mg PO TID 03/31/17 [History] Tizanidine HCl [Zanaflex] 4 mg PO TID 03/31/17 [History] predniSONE [PredniSONE] 20 mg PO DAILY 5 Days #5 tablet 05/12/17 [Rx] Ferrous Sulfate [Iron] 325 mg PO DAILY 11/04/17 [History] Furosemide [Lasix] 40 mg PO DAILY 11/04/17 [History] Glucagon,Human Recombinant [Glucagon Emergency Kit] 1 mg IJ ONCE PRN 11/04/17 [ History] Levalbuterol [Xopenex] 2 puff IH Q4H PRN 11/04/17 [History] Omeprazole [PriLOSEC] 20 mg PO BID 11/04/17 [History] Ondansetron HCl [Zofran] 4 mg PO Q6H PRN 11/04/17 [History] Psyllium Husk [Daily Fiber] 2 tab PO DAILY 11/04/17 [History] Sennosides/Docusate Sodium [Sm Senna-S Tablet] 1 tab PO BID PRN 11/04/17 [ History] Sucralfate [Carafate] 1 gm PO QIDAC 11/04/17 [History] Umeclidinium Drexel [Incruse Ellipta] 1 puff IH DAILY 11/04/17 [History] 3 Allergy/AdvReac Type Severity Reaction Status Date / Time acetaminophen Allergy See Verified 11/04/17 13:29 [From Darvocet-N 100] Comments atropine [From Urised] Allergy See Verified 11/04/17 13:29 Comments Benzoic Acid [From Urised] Allergy See Verified 11/04/17 13:29 Comments Benzoic Acid Allergy See Verified 11/04/17 13:29 Comments butalbital [From Fioricet] Allergy See Verified 11/04/17 13:29 Comments caffeine [From Fioricet] Allergy See Verified 11/04/17 13:29 Comments ciprofloxacin [From Cipro] Allergy See Verified 11/04/17 13:29 Comments Hyoscyamine Allergy See Verified 11/04/17 13:29 Comments methenamine Allergy See Verified 11/04/17 13:29 Comments methylene blue [From Urised] Allergy See Verified 11/04/17 13:29 Comments NSAIDS (Non-Steroidal Allergy Itching Verified 11/04/17 13:29 Anti-Inflamma Penicillins Allergy See Verified 11/04/17 13:29 Comments propoxyphene Allergy See Verified 11/04/17 13:29 [From Darvocet-N 100] Comments salicylates [From Urised] Allergy See Verified 11/04/17 13:29 Comments All Systems Review: The remainder of the systems were reviewed and are negative - Constitutional Constitutional: no fever(s), no headache(s) - EENT Eyes: no blurred vision, no loss of vision - Cardiovascular Cardiovascular: as per HPI - Respiratory Respiratory: no dyspnea, no hemoptysis - Gastrointestinal Gastrointestinal: abdominal pain, nausea - Integumentary Integumentary: no rash - Neurological Neurological: no abnormal speech, no focal weakness Physical Examination Vital Signs, Last 4 Hours Temp Pulse Resp BP Pulse Ox 11/05/17 11:31 98.2 F 55 20 168/84 92 General: Conversant, No Apparent Distress HEENT: Atraumatic, Normocephaly, Mucus Membranes Moist Neck: No JVD, Normal carotid pulses Cardiac: Reg Rate and Rhythm, Normal S1 and S2, No Murmur Lungs: Normal Breath Sounds, No Wheeze, Rales, Rhonchi Neuro: Alert and responsive, No focal deficits noted Abdomen: Soft, Other (mild tenderness to superficial and deep palpation of the epigastric area) Skin: No rashes noted on visualized skin Musculoskeletal: No Chest Wall Tenderness Extremities: No Cyanosis, Normal Pulses Results 11/05/17 04:34 11/05/17 04:34 Lab Results 11/04/17 11/04/17 11/05/17 16:44 22:40 04:34 WBC Hgb Hct Plt Count INR APTT Sodium Potassium Chloride Carbon Dioxide BUN Creatinine Glucose Calcium Magnesium Total Bilirubin AST ALT Alkaline Phosphatase Troponin I < 0.03 < 0.03 < 0.03 B-Natriuretic Peptide 11/05/17 11/05/17 11/05/17 04:34 04:34 04:34 WBC 3.7 L Hgb 9.9 L Hct 32.2 L Plt Count 172 INR 1.1 APTT 27.8 Sodium 136 Potassium 4.4 Chloride 102 Carbon Dioxide 28 BUN 17 Creatinine 0.78 Glucose 164 H Calcium 9.3 Magnesium 1.8 Total Bilirubin 0.2 L AST 13 ALT 9 Alkaline Phosphatase 44 Troponin I B-Natriuretic Peptide 11/05/17 04:34 WBC Hgb Hct Plt Count INR APTT Sodium Potassium Chloride Carbon Dioxide BUN Creatinine Glucose Calcium Magnesium Total Bilirubin AST ALT Alkaline Phosphatase Troponin I B-Natriuretic Peptide 113 H Consult Discharge Plan - Plan Referrals: Lucia Leone DO [Primary Care Provider] - <Heather Grijalva - Last Filed: 11/05/17 16:55> Date of Encounter: 11/05/17 - Attending Attestation I examined this patient and my medical decision-making was reviewed with the Resident Physician. I agree with the documented findings, disposition and treatment plan. Ms. Sahu presents with atypical chest pain possibly GI in origin (history of esophageal stenosis, dysphagia). Troponins negative, no concerning ischemia ECG findings. Stress test ordered by primary team - will be a 2-day study. Further recommendations pending testing. Assessment and Plan Discussion w patient/family: The assessment and plan as outlined above was discussed with the patient and/or family members who expressed understanding and agreement. All questions were answered. Thank you for involving us in the care of your patient. Please call with any questions. History of Present Illness History of present illness: Ms. Sahu is a 72 year old female All Systems Review: The remainder of the systems were reviewed and are negative Physical Examination Vital Signs, Last 4 Hours Temp Pulse Resp BP Pulse Ox 11/05/17 14:18 97.6 F 75 18 135/83 95 Results 11/05/17 04:34 11/05/17 04:34 Lab Results 11/04/17 11/04/17 11/05/17 16:44 22:40 04:34 WBC Hgb Hct Plt Count INR APTT Sodium Potassium Chloride Carbon Dioxide BUN Creatinine Glucose Calcium Magnesium Total Bilirubin AST ALT Alkaline Phosphatase Troponin I < 0.03 < 0.03 < 0.03 B-Natriuretic Peptide 11/05/17 11/05/17 11/05/17 04:34 04:34 04:34 WBC 3.7 L Hgb 9.9 L Hct 32.2 L Plt Count 172 INR 1.1 APTT 27.8 Sodium 136 Potassium 4.4 Chloride 102 Carbon Dioxide 28 BUN 17 Creatinine 0.78 Glucose 164 H Calcium 9.3 Magnesium 1.8 Total Bilirubin 0.2 L AST 13 ALT 9 Alkaline Phosphatase 44 Troponin I B-Natriuretic Peptide 11/05/17 04:34 WBC Hgb Hct Plt Count INR APTT Sodium Potassium Chloride Carbon Dioxide BUN Creatinine Glucose Calcium Magnesium Total Bilirubin AST ALT Alkaline Phosphatase Troponin I B-Natriuretic Peptide 113 H
--- NOTE | 2017-11-05 13:47 | Internal Med Progress Note ---
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 Serial troponin negative. EKG without acute ST changes. TTE with EF 55%, mild diastolic dysfunction, no wall motion abnormalities. Stress test pending. Cardiology consulted (2) Diabetes Current Visit: No Status: Chronic Assessment and plan: per hx. Control unknown. Holding home oral hypoglycemics. SSI. Monitor blood sugar and titrate PRN. 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 BP uncontrolled. Add amlodipine. Monitor BP and titrate PRN Qualifiers: Hypertension type: essential hypertension Qualified Code(s): I10 - Essential (primary) hypertension (4) COPD (chronic obstructive pulmonary disease) Current Visit: No Status: Chronic Assessment and plan: known COPD; no evidence of exacerbation. Continue home inhalers. Qualifiers: COPD type: unspecified COPD Qualified Code(s): J44.9 - Chronic obstructive pulmonary disease, unspecified (5) Morbid obesity Current Visit: No Status: Acute Assessment and plan: Patient's BMI is 42; wheel chair bound, lives in halfway. Weight loss not likely (6) GI bleed Current Visit: No Status: Acute Assessment and plan: in 05/2017. EGD at that time without bleeding source. Hgb stable Qualifiers: GI bleed type/associated pathology: gastritis Gastritis type: chronic gastritis Qualified Code(s): K29.51 - Unspecified chronic gastritis with bleeding (7) Chronic steroid use Current Visit: Yes Status: Acute Assessment and plan: on 20 mg of prednisone daily for unknown reasons (patient does not know). Possibly secondary to COPD. Will continue (8) DVT prophylaxis Current Visit: Yes Status: Acute Assessment and plan: In view of the previous GI bleed this patient is not a candidate for pharmacological DVT prophylaxis; SCD - Time Spent With Patient Total time spent is greater than 50% in coordination of care (as documented) at patient's floor/unit and/or counseling patient: - Subjective Interval history: Seen and examined at bedside; patient is new to me. Information obtained from chart review and patient report. Says she lives in a halfway and has resided there for the last 9 years. She is wheelchair-bound. 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 She still is having intermittent chest pain. No shortness of breath. - Constitutional Vitals: Temp Pulse Resp BP Pulse Ox 98.2 F 55 20 168/84 92 11/05/17 11:31 11/05/17 11:31 11/05/17 11:31 11/05/17 11:31 11/05/17 11:31 General appearance: Present: A&O X 3, morbidly obese, pleasant, no acute distress, answers questions appropriately - Head Head exam: Present: atraumatic, normocephalic - Eye Eye exam: Present: PERRL, conjuntiva pink, sclera anicteric Pupils: Present: PERRL - Neck Neck exam general surgery: Present: supple, trachea midline. Absent: lymphadenopathy - Respiratory Respiratory exam: Present: CTAB. Absent: accessory muscle use, rales, rhonchi, wheezes - Cardiovascular Cardiovascular exam: Present: RRR, +S1, +S2. Absent: diastolic murmur, gallop, rubs, systolic murmur - GI/Abdominal GI/Abdominal exam: Present: normal bowel sounds, soft, no peritoneal signs. Absent: distended, tenderness - Extremities Exam Extremities exam: Present: warm, radial pulses palpable and symmetrical. Absent : calf tenderness, cyanotic, pedal edema - Neurological Exam Neurological exam: Present: CN II-XII intact, oriented X3, no focal deficits. Absent: pronater drift, facial droop, speech deficit - Expanded Neurological Exam Neurological exam expanded: Present: tremor (RUE intention tremors) - Skin Skin exam: Present: dry, intact Internal Medicine: Result - Labs CBC & Chem 7: 11/05/17 04:34 11/05/17 04:34 Labs: Short CBC 11/05/17 Range/Units 04:34 WBC 3.7 L (4.3-11.1) K/mcL Hgb 9.9 L (11.5-15.4) g/dL Hct 32.2 L (35.3-44.9) % Plt Count 172 (140-400) K/mcL Neutrophils # 2.1 (1.6-8.9) K/mcL BMP 11/05/17 04:34 Sodium 136 Potassium 4.4 Chloride 102 Carbon Dioxide 28 BUN 17 Creatinine 0.78 Glucose 164 H Calcium 9.3 Cardiac Enzymes 11/04/17 11/04/17 11/05/17 Range/Units 16:44 22:40 04:34 Troponin I < 0.03 < 0.03 < 0.03 (< 0.04) ng/mL Liver Function 11/05/17 Range/Units 04:34 Total Bilirubin 0.2 L (0.3-1.0) mg/dL AST 13 (13-39) Units/L ALT 9 (7-52) Units/L Alkaline Phosphatase 44 (34-104) Units/L Albumin 3.5 (3.5-5.7) g/dL - ABG Interpretation ABG results: PT/INR, D-dimer PT 12.2 Seconds (9.4-12.1) H 11/05/17 04:34 - Impressions Impressions Echocardiogram 11/04/17 13:53 Impressions: LVEF 55-60%. No pulmonary hypertension. Mild left ventricular diastolic dysfunction. No significant valvular dysfunction. Left Ventricular Wall Motion: Rest Echo Findings All wall segments showed normal motion. Findings: Study Quality * Technically adequate exam. Right Ventricle * Normal right ventricular structure and function. Left Atrium * Normal left atrial size. Right Atrium * Normal right atrial size. Aortic Valve * Trileaflet aortic valve with normal function. Mitral Valve * Normal mitral valve structure and function. Interatrial Septum * No evidence of PFO by color Doppler. Aorta * Normally sized aortic root. Pericardium * The pericardium appears normal. ECG Findings * Normal sinus rhythm. Tricuspid Valve * Trace tricuspid regurgitation. * No tricuspid stenosis. * Estimated RVSP is 24 mmHg. * No pulmonary hypertension. Pulmonic Valve * No pulmonic stenosis. * Mild pulmonic regurgitation. Left Ventricle * Mild left ventricular diastolic dysfunction. * LVEF 55-60%. Consult Discharge Plan - Plan Referrals: Lucia Leone DO [Primary Care Provider] -
[2017-11-05] MEDS: amLODIPine 5 MG TABLET PO SCH (14:43)
[2017-11-05] MEDS ORDERED: Acetaminophen 325 MG TABLET PO PRN (17:08)
[2017-11-06] MEDS: *HR* HYDROcodone/Acet 5/325 mg TABLET PO PRN ×3 (02:39→17:26)
[2017-11-06] MEDS ORDERED: Regadenoson 0.4 MG/5 ML SYRINGE IVP ONE (05:49)
[2017-11-06] MEDS: Sucralfate 1 GM TABLET PO SCH ×2 (06:10→17:28)
[2017-11-06] MEDS: Budesonide/Formoterol 80/4.5 MDI IH SCH (10:11)
[2017-11-06] MEDS: Tiotropium 18 MCG inhalation IH SCH (10:11)
--- NOTE | 2017-11-06 11:38 | Event Note ---
Date of Encounter: 11/06/17 Time of Encounter: 11:30 - Cardiology Event Note Laboratory Tests 11/04/17 11/04/17 11/04/17 10:43 16:44 22:40 Troponin I < 0.03 < 0.03 < 0.03 11/05/17 04:34 Troponin I < 0.03 ST: Impression: Perfusion imaging was negative for ischemia or infarct. Pharmacologic stress ECG is negative for ischemia at level of heart rate achieved. Patient had 4/10 chest pain prior to start of procedure which remained unchanged during the procedure. Gated EF = 52%. Discussed with Dr. Grijavla. Rec. eval noncardiac causes. Cardiology will s/o, re- consult PRN, f/u arranged.
[2017-11-06] MEDS: predniSONE 20 MG TABLET PO SCH (12:57)
[2017-11-06] MEDS: Cholecalciferol (D-3) 1,000 UNIT TABLET PO SCH (12:57)
[2017-11-06] MEDS: Gabapentin 300 MG CAPSULE PO SCH (12:57)
[2017-11-06] MEDS: amLODIPine 5 MG TABLET PO SCH (12:57)
[2017-11-06] MEDS: Furosemide 40 MG TABLET PO SCH (12:58)
[2017-11-06] MEDS: Loratadine 10 MG TABLET PO SCH (12:58)
[2017-11-06] MEDS: Magnesium Oxide 400 MG TABLET PO SCH ×2 (12:58→17:28)
[2017-11-06] MEDS: tiZANidine 4 MG TABLET PO SCH ×2 (12:59→17:29)
[2017-11-06] MEDS: Ondansetron ODT 4 MG TAB.RAPDIS SL PRN (12:59)
[2017-11-06] MEDS: Insulin LISPRO 300 UNITS/3 ML VIAL SQ SCH ×3 (13:00→17:29)
--- NOTE | 2017-11-06 15:16 | Discharge Summary ---
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 Serial troponin negative. EKG without acute ST changes. TTE with EF 55%, mild diastolic dysfunction, no wall motion abnormalities. Stress test negative for ischemia or infarct. Suspect chest pain secondary to GI source as noted below. No further cardiac workup indicated. Cardiology followed. (2) Gastritis Priority: Primary Status: Acute Assessment and Plan: per hx. 11/2016 EGD with dense of gastritis, hiatal hernia and esophageal stricture (status post dilation). Suspect this is contributing to chest pain. Continue home PPI, Carafate. Qualifiers: Gastritis type: superficial Chronicity: chronic Gastritis bleeding: without bleeding Qualified Code(s): K29.30 - Chronic superficial gastritis without bleeding (3) Diabetes Priority: Secondary Status: Chronic Assessment and Plan: per hx. Cont previous diabetes medication regimen. 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 BP uncontrolled. Amlodipine added. BP remains mildly elevated however cannot take up to 54 doses of antihypertensive agent to see full antihypertensive effect. Cont BB, CCB. BP can be monitored and medication regimen titrated at SNF Qualifiers: Hypertension type: essential hypertension Qualified Code(s): I10 - Essential (primary) hypertension (5) COPD (chronic obstructive pulmonary disease) Priority: Secondary Status: Chronic Assessment and Plan: known COPD; no evidence of exacerbation. Continue home inhalers. Qualifiers: COPD type: unspecified COPD Qualified Code(s): J44.9 - Chronic obstructive pulmonary disease, unspecified (6) Morbid obesity Priority: Secondary Status: Acute Assessment and Plan: Patient's BMI is 42; wheel chair bound, [facility] [place] [facility]. Weight loss not likely (7) GI bleed Priority: Secondary Status: Acute Assessment and Plan: in 05/2017 EGD at that time without bleeding source. Hgb stable Qualifiers: GI bleed type/associated pathology: gastritis Gastritis type: chronic gastritis Qualified Code(s): K29.51 - Unspecified chronic gastritis with bleeding (8) Chronic steroid use Priority: Secondary Status: Acute Assessment and Plan: on 20 mg of prednisone daily for unknown reasons (patient does not know). Possibly secondary to COPD. Cont per home medication list Hospital course: See assessment and plan for Hospital course Discharge discussed with: patient (Seen and examined at bedside. She is resting in bed and appears comfortable. Denies chest pain, no shortness of breath.) - Time Spent with Patient Total time spent providing and/or coordinating discharge services: - Discharge Medications Prescriptions: Oxycodone HCl/Acetaminophen [Percocet 5-325 mg Tablet] 1 tab PO Q6H PRN 7 Days # 28 tablet PRN Reason: Moderate Pain Home Medications: Acetaminophen [Tylenol] 650 mg PO Q6HR PRN 11/02/16 [History] Benzocaine/Menthol Sunil [Cepacol Sore Throat Lozenge] 1 lozenge MM Q4H PRN [History] Bisacodyl [Woman's Laxative] 5 mg PO DAILY PRN 11/02/16 [History] Calcium Carbonate/Vitamin D3 [Oyster Shell Calcium-Vit D Tab] 1 tab PO BID 11/02 [History] Fluticasone/Salmeterol [Advair 250-50 Diskus] 1 puff IH BID 11/02/16 [History] Glimepiride [Amaryl] 4 mg PO DAILY 11/02/16 [History] GuaiFENesin/Dextromethorphan [Mucinex Dm ER 600-30 mg Tablet] 1 tab PO BID 11/02 [History] Hydrocortisone Butyrate 1 appl TP BID PRN 11/02/16 [History] Insulin ASPART [Novolog Flexpen] 0 unit SQ TIDWM PRN 11/02/16 [History] Loratadine [Allergy Relief] 10 mg PO DAILY 11/02/16 [History] Magnesium Oxide [Mag-Ox] 400 mg PO TID 11/02/16 [History] Menthol [Biofreeze] 1 appl TP BID 11/02/16 [History] Metoclopramide [Reglan] 10 mg PO TID 11/02/16 [History] Metoprolol [Lopressor] 25 mg PO BID 11/02/16 [History] Montelukast [Singulair] 10 mg PO DAILY 11/02/16 [History] Multivitamin with Iron [Multivitamins with Iron] 1 tab PO DAILY 11/02/16 [ History] Nitroglycerin [Nitrostat] 0.4 mg SL AD PRN 11/02/16 [History] Oxybutynin Chloride [Ditropan Xl] 10 mg PO DAILY 11/02/16 [History] Pioglitazone [Actos] 30 mg PO DAILY 11/02/16 [History] SUMAtriptan Succinate [Imitrex] 100 mg PO AD PRN 11/02/16 [History] Simvastatin [Zocor] 20 mg PO HS 11/02/16 [History] Tiotropium [Spiriva] 18 mcg IH DAILY 11/02/16 [History] DULoxetine [Cymbalta] 30 mg PO DAILY 03/31/17 [History] Gabapentin [Neurontin] 300 mg PO TID 03/31/17 [History] Tizanidine HCl [Zanaflex] 4 mg PO TID 03/31/17 [History] predniSONE [PredniSONE] 20 mg PO DAILY 5 Days #5 tablet 05/12/17 [Rx] Ferrous Sulfate [Iron] 325 mg PO DAILY 11/04/17 [History] Furosemide [Lasix] 40 mg PO DAILY 11/04/17 [History] Glucagon,Human Recombinant [Glucagon Emergency Kit] 1 mg IJ ONCE PRN 11/04/17 [ History] Levalbuterol [Xopenex INH] 2 puff IH Q4H PRN 11/04/17 [History] Omeprazole [PriLOSEC] 20 mg PO BID 11/04/17 [History] Ondansetron HCl [Zofran] 4 mg PO Q6H PRN 11/04/17 [History] Psyllium Husk [Daily Fiber] 2 tab PO DAILY 11/04/17 [History] Sennosides/Docusate Sodium [Sm Senna-S Tablet] 1 tab PO BID PRN 11/04/17 [ History] Sucralfate [Carafate] 1 gm PO QIDAC 11/04/17 [History] Umeclidinium [place] [Incruse Ellipta] 1 puff IH DAILY 11/04/17 [History] Oxycodone HCl/Acetaminophen [Percocet 5-325 mg Tablet] 1 tab PO Q6H PRN 7 Days # 28 tablet 11/06/17 [Rx] amLODIPine [Norvasc] 10 mg PO DAILY tablet 11/06/17 [Rx] Allergies/Adverse Reactions: 3 Allergy/AdvReac Type Severity Reaction Status Date / Time acetaminophen Allergy See Verified 11/04/17 13:29 [From Darvocet-N 100] Comments atropine [From Urised] Allergy See Verified 11/04/17 13:29 Comments Benzoic Acid [From Urised] Allergy See Verified 11/04/17 13:29 Comments Benzoic Acid Allergy See Verified 11/04/17 13:29 Comments butalbital [From Fioricet] Allergy See Verified 11/04/17 13:29 Comments caffeine [From Fioricet] Allergy See Verified 11/04/17 13:29 Comments ciprofloxacin [From Cipro] Allergy See Verified 11/04/17 13:29 Comments Hyoscyamine Allergy See Verified 11/04/17 13:29 Comments methenamine Allergy See Verified 11/04/17 13:29 Comments methylene blue [From Urised] Allergy See Verified 11/04/17 13:29 Comments NSAIDS (Non-Steroidal Allergy Itching Verified 11/04/17 13:29 Anti-Inflamma Penicillins Allergy See Verified 11/04/17 13:29 Comments propoxyphene Allergy See Verified 11/04/17 13:29 [From Darvocet-N 100] Comments salicylates [From Urised] Allergy See Verified 11/04/17 13:29 Comments Date of admission: 11/04/17 13:08 Primary care physician: Lucia Leone, Consults: 11/04/17 14:28 Consult to Blow Off Worker [CONS] Routine Reason for SW Consult: Pt resides at [facility], discharge planning 11/05/17 09:49 Consult to Cardiology [CONS] Routine Comment: Consulting Provider: [facility] [place] Reason for Consult: chest pain Call Completed: Yes Discharging clinician: Lolis Milan Anticipated date of discharge: 11/06/17 - Constitutional Vitals: Temp Pulse Resp BP Pulse Ox 98.0 F 75 16 174/70 94 11/06/17 11:07 11/06/17 11:07 11/06/17 11:07 11/06/17 11:07 11/06/17 11:07 General appearance: Present: A&O X 3, morbidly obese, pleasant, no acute distress, answers questions appropriately - Head Head exam: Present: atraumatic, normocephalic - Eye Eye exam: Present: PERRL, conjuntiva pink, sclera anicteric Pupils: Present: PERRL - Neck Neck exam general surgery: Present: supple, trachea midline. Absent: lymphadenopathy - Respiratory Respiratory exam: Present: CTAB. Absent: accessory muscle use, rales, rhonchi, wheezes - Cardiovascular Cardiovascular exam: Present: RRR, +S1, +S2. Absent: diastolic murmur, gallop, rubs, systolic murmur - GI/Abdominal GI/Abdominal exam: Present: normal bowel sounds, soft, no peritoneal signs. Absent: distended, tenderness - Extremities Exam Extremities exam: Present: warm, radial pulses palpable and symmetrical. Absent : calf tenderness, cyanotic, pedal edema - Neurological Exam Neurological exam: Present: CN II-XII intact, oriented X3, no focal deficits. Absent: pronater drift, facial droop, speech deficit - Skin Skin exam: Present: dry, intact - Patient Status Disposition: Transfer SNF Condition: Good Functional capacity at discharge: wheelchair bound Overall status at discharge: patient is back to baseline - Discharge Instructions Follow Up With: Lucia Leone DO [Primary Care Provider] - - Diet and Activity Activity: increase activity as tolerated Diet: diabetic diet, low fat, low cholesterol
--- NOTE | 2017-11-06 16:04 | Physician Discharge Referral ---
ExtendedCare Referral Info Transfer To: SNF Provider in Charge: Lolis Miguel CNP Provider in Charge after Transfer: PCP Institutional Level of Care: Skilled - Diagnosis (1) Atypical chest pain Status: Acute (2) Gastritis Status: Acute (3) Diabetes Status: Chronic (4) Hypertension Status: Acute (5) COPD (chronic obstructive pulmonary disease) Status: Chronic (6) Morbid obesity Status: Acute (7) GI bleed Status: Acute (8) Chronic steroid use Status: Acute - Transfer Medications Prescriptions: Oxycodone HCl/Acetaminophen [Percocet 5-325 mg Tablet] 1 tab PO Q6H PRN 7 Days # 28 tablet PRN Reason: Moderate Pain Home Medications: Acetaminophen [Tylenol] 650 mg PO Q6HR PRN 11/02/16 [History] Benzocaine/Menthol Sunil [Cepacol Sore Throat Lozenge] 1 lozenge MM Q4H PRN [History] Bisacodyl [Woman's Laxative] 5 mg PO DAILY PRN 11/02/16 [History] Calcium Carbonate/Vitamin D3 [Oyster Shell Calcium-Vit D Tab] 1 tab PO BID 11/02 [History] Fluticasone/Salmeterol [Advair 250-50 Diskus] 1 puff IH BID 11/02/16 [History] Glimepiride [Amaryl] 4 mg PO DAILY 11/02/16 [History] GuaiFENesin/Dextromethorphan [Mucinex Dm ER 600-30 mg Tablet] 1 tab PO BID 11/02 [History] Hydrocortisone Butyrate 1 appl TP BID PRN 11/02/16 [History] Insulin ASPART [Novolog Flexpen] 0 unit SQ TIDWM PRN 11/02/16 [History] Loratadine [Allergy Relief] 10 mg PO DAILY 11/02/16 [History] Magnesium Oxide [Mag-Ox] 400 mg PO TID 11/02/16 [History] Menthol [Biofreeze] 1 appl TP BID 11/02/16 [History] Metoclopramide [Reglan] 10 mg PO TID 11/02/16 [History] Metoprolol [Lopressor] 25 mg PO BID 11/02/16 [History] Montelukast [Singulair] 10 mg PO DAILY 11/02/16 [History] Multivitamin with Iron [Multivitamins with Iron] 1 tab PO DAILY 11/02/16 [ History] Nitroglycerin [Nitrostat] 0.4 mg SL AD PRN 11/02/16 [History] Oxybutynin Chloride [Ditropan Xl] 10 mg PO DAILY 11/02/16 [History] Pioglitazone [Actos] 30 mg PO DAILY 11/02/16 [History] SUMAtriptan Succinate [Imitrex] 100 mg PO AD PRN 11/02/16 [History] Simvastatin [Zocor] 20 mg PO HS 11/02/16 [History] Tiotropium [Spiriva] 18 mcg IH DAILY 11/02/16 [History] DULoxetine [Cymbalta] 30 mg PO DAILY 03/31/17 [History] Gabapentin [Neurontin] 300 mg PO TID 03/31/17 [History] Tizanidine HCl [Zanaflex] 4 mg PO TID 03/31/17 [History] predniSONE [PredniSONE] 20 mg PO DAILY 5 Days #5 tablet 05/12/17 [Rx] Ferrous Sulfate [Iron] 325 mg PO DAILY 11/04/17 [History] Furosemide [Lasix] 40 mg PO DAILY 11/04/17 [History] Glucagon,Human Recombinant [Glucagon Emergency Kit] 1 mg IJ ONCE PRN 11/04/17 [ History] Levalbuterol [Xopenex INH] 2 puff IH Q4H PRN 11/04/17 [History] Omeprazole [PriLOSEC] 20 mg PO BID 11/04/17 [History] Ondansetron HCl [Zofran] 4 mg PO Q6H PRN 11/04/17 [History] Psyllium Husk [Daily Fiber] 2 tab PO DAILY 11/04/17 [History] Sennosides/Docusate Sodium [Sm Senna-S Tablet] 1 tab PO BID PRN 11/04/17 [ History] Sucralfate [Carafate] 1 gm PO QIDAC 11/04/17 [History] Umeclidinium [place] [Incruse Ellipta] 1 puff IH DAILY 11/04/17 [History] Oxycodone HCl/Acetaminophen [Percocet 5-325 mg Tablet] 1 tab PO Q6H PRN 7 Days # 28 tablet 11/06/17 [Rx] amLODIPine [Norvasc] 10 mg PO DAILY tablet 11/06/17 [Rx] Allergies/Adverse Reactions: 3 Allergy/AdvReac Type Severity Reaction Status Date / Time acetaminophen Allergy See Verified 11/04/17 13:29 [From Darvocet-N 100] Comments atropine [From Urised] Allergy See Verified 11/04/17 13:29 Comments Benzoic Acid [From Urised] Allergy See Verified 11/04/17 13:29 Comments Benzoic Acid Allergy See Verified 11/04/17 13:29 Comments butalbital [From Fioricet] Allergy See Verified 11/04/17 13:29 Comments caffeine [From Fioricet] Allergy See Verified 11/04/17 13:29 Comments ciprofloxacin [From Cipro] Allergy See Verified 11/04/17 13:29 Comments Hyoscyamine Allergy See Verified 11/04/17 13:29 Comments methenamine Allergy See Verified 11/04/17 13:29 Comments methylene blue [From Urised] Allergy See Verified 11/04/17 13:29 Comments NSAIDS (Non-Steroidal Allergy Itching Verified 11/04/17 13:29 Anti-Inflamma Penicillins Allergy See Verified 11/04/17 13:29 Comments propoxyphene Allergy See Verified 11/04/17 13:29 [From Darvocet-N 100] Comments salicylates [From Urised] Allergy See Verified 11/04/17 13:29 Comments - Respiratory Orders Oxygen / L per min (2 8 as per minute as needed to maintain O2 saturations greater than 92%) Smoking Cessation: Smoking cessation has been advised. For more information, call the [place] Tobacco Quit Line at 8-698-YKND-NOW. - Advance Directives Code Status: Full Code - Mobility Orders Chair - Rehabiliation Orders Rehab Potential: Fair Rehab Orders: Evaluation for Physical Therapy, Evaluation for Occupational Therapy - Diet Orders No Concentrated Sweets, Cardiac CERTIFICATION: I certify that the transfer of the above named patient to an Extended Care Facility is necessary for the continuing treatment of the diagnosis listed. The above information is true and accurate reflection of patient's current condition. Confidential - Redisclosure prohibited without a patient's written consent.
[2017-11-06 17:20] VITALS: BP 96/54
== END 2017-11-06 17:30 ==
LOC: 3BNU 10:22 → EMEROO 10:22 → 3BNU 14:23
PROVIDERS: ADMIT Internal Medicine; ATTEND Internal Medicine